=== PATIENT | female | born 1945 | race Caucasian/White ===

== ENCOUNTER → 2017-08-19 12:40 | Outpatient (CLI) | payer MEDICARE, SELFPAY ==
[2016-12-29 14:57] VITALS: BMI 44.9
--- NOTE | 2017-08-20 08:35 | PFTCOMP ---
COMPLETE PULMONARY FUNCTION TEST INTERPRETATION Brief HPI: Patient is a 71 year old female, currently under the care of myself, who presents to [facility] for complete pulmonary function tests secondary to diagnosis of dyspnea. Respiratory therapist reports good effort and reproducible results. Interpretation: Forced expiration spirometry shows no large airways obstructive ventilatory defect with an FEV1 of 79 % predicted. There is some bronchodilator response, but this does not meet clinical significance by strict ATS criteria. Spirograms are of good quality and plateau slowly, indicating slowly emptying areas of the lungs. The respiratory flow volume loop shows decreased expiratory flow rates at high lung volumes consistent with small airways obstruction. Lung volumes by body plethysmography show a normal total lung capacity at 4.77 L, 99 % predicted. All other lung volumes are within normal limits. Diffusion capacity by carbon monoxide is decreased at 55 % predicted. The airway resistance is normal. Compared to previous pulmonary function tests from 01/20/2017, there has been a significant change in DLCO, improved by 17%. Impression: Isolated defect in diffusion capacity with significant improvement compared to previous study 8 months prior.
--- NOTE | 2017-08-20 08:38 | PFTCOMP_ITS ---
COMPLETE PULMONARY FUNCTION TEST INTERPRETATION Brief HPI: Patient is a 71 year old female, currently under the care of myself, who presents to [facility] for complete pulmonary function tests secondary to diagnosis of dyspnea. Respiratory therapist reports good effort and reproducible results. Interpretation: Forced expiration spirometry shows no large airways obstructive ventilatory defect with an FEV1 of 79 % predicted. There is some bronchodilator response, but this does not meet clinical significance by strict ATS criteria. Spirograms are of good quality and plateau slowly, indicating slowly emptying areas of the lungs. The respiratory flow volume loop shows decreased expiratory flow rates at high lung volumes consistent with small airways obstruction. Lung volumes by body plethysmography show a normal total lung capacity at 4.77 L , 99 % predicted. All other lung volumes are within normal limits. Diffusion capacity by carbon monoxide is decreased at 55 % predicted. The airway resistance is normal. Compared to previous pulmonary function tests from 01/20/2017, there has been a significant change in DLCO, improved by 17%. Impression: Isolated defect in diffusion capacity with significant improvement compared to previous study 8 months prior.
== END ==
PROVIDERS: Family Provider Family Medicine; PCP Family Medicine; Visit Provider Internal Medicine Critical Care Medicine
DX: R06.00 Dyspnea, unspecified (principal)
CPT/HCPCS: 94060; 94726; 94729

== ENCOUNTER → 2017-08-21 08:46 | Outpatient (CLI) | payer MEDICARE, SELFPAY ==
[2016-12-29 14:57] VITALS: BMI 44.9
[2017-08-21 09:12] VITALS: PULSE 107; PULSE 108; PULSE 110; PULSE 63; PULSE 67; PULSE 95; PULSE 98; O2SAT 94; O2SAT 95; O2SAT 96; O2SAT 97; O2SAT 99
--- NOTE | 2017-08-21 14:21 | WT_ITS ---
PSN 6 Minute Walk Test - 6 Minute Walk Test 6 Minute Walk Test: 6 Minute Walk Test PSN:6-Minute Walk Test Start: 08/21/17 09: 12 Freq: Status: Active Protocol: [id number].6MINW Document 08/21/17 09:12 HG (Rec: 08/21/17 09:13 HG [id number]) 6 Minute Walk Test Date Performed 08/21/17 Time Performed 09:00 Height 5 ft 5 in Weight: 117.934 kg Weight in Pounds 260.[address]: Jason Comer Assistive device used: None Pre-test Oxygen Delivery Method Room Air Pulse Ox (%) 97 Pulse Rate (60-100 beats/min) 63 Dyspnea Mary Ellen Scale (0-10) 1 Exertion Mary Ellen Scale (6-20) 6 1st minute Oxygen Delivery Method Room Air Pulse Ox (%) 96 Pulse Rate (60-100 beats/min) 67 2nd minute Oxygen Delivery Method Room Air Pulse Ox (%) 95 Pulse Rate (60-100 beats/min) 98 3rd minute Oxygen Delivery Method Room Air Pulse Ox (%) 94 Pulse Rate (60-100 beats/min) 108 H 4th minute Oxygen Delivery Method Room Air Pulse Ox (%) 95 Pulse Rate (60-100 beats/min) 107 H 5th minute Oxygen Delivery Method Room Air Pulse Ox (%) 94 Pulse Rate (60-100 beats/min) 110 H 6th minute Oxygen Delivery Method Room Air Pulse Ox (%) 95 Pulse Rate (60-100 beats/min) 110 H Post-test Oxygen Delivery Method Room Air Pulse Ox (%) 99 Pulse Rate (60-100 beats/min) 95 Dyspnea Mary Ellen Scale (0-10) 1 Exertion Mary Ellen Scale (6-20) 6 Full Laps Walked 20 Partial Lap, Number of Tiles Walked 0 Total Distance Walked (ft) 1180 - Interpretation Interpretation: The patient was able to ambulate 1180 feet over the course of 6 minutes on room air with no assistive devices or breaks. The patient experienced no significant desaturation, but did have some tachycardia. These findings are consistent with deconditioning. - Recommendations Recommendations: No supplemental oxygen is indicated at this time.
== END ==
PROVIDERS: Family Provider Family Medicine; PCP Family Medicine; Visit Provider Internal Medicine Critical Care Medicine
DX: R00.0 Tachycardia, unspecified (principal)
CPT/HCPCS: 94618

== ENCOUNTER → 2017-10-09 09:11 | Outpatient (CLI) | payer MEDICARE, SELFPAY ==
[2016-12-29 14:57] VITALS: BMI 44.9
[2017-10-09 11:05] LABS: AST(SGOT) 21 U/L (15-37); Alanine Aminotransfer ALT/SGPT 27 U/L (13-56); Albumin, Serum 3.2 g/dL (3.2-5.0); Alkaline Phosphatase 100 U/L (45-117); Bilirubin, Direct 0.12 mg/dL (0.00-0.30); Cholesterol 135 mg/dL (200); High Density Lipoprotein 49 mg/dL; Protein, Total 7.2 g/dL (6.4-8.2); Triglycerides 78 mg/dL; Very Low Density Lipoprotein 16 mg/dL (5-40)
== END ==
PROVIDERS: Family Provider Family Medicine; PCP Family Medicine; Visit Provider Internal Medicine Cardiovascular Disease
DX: E78.5 Hyperlipidemia, unspecified (principal); Z79.899 Other long term (current) drug therapy
CPT/HCPCS: 36415; 80061; 80076

== ENCOUNTER → 2018-03-16 12:41 | Outpatient (CLI) | payer MEDICARE, SELFPAY ==
[2016-12-29 14:57] VITALS: BMI 44.9
--- NOTE | 2018-03-16 12:42 | CDU_ITS ---
Reason For Study: Carotid bruit Rt. Velocities/BP Lt. Velocities/BP Prox CCA 119/25.9 cm/sec. Prox CCA 108/26.7 cm/sec. Mid CCA 98.2/18.1 cm/sec. Mid CCA 85.6/26.7 cm/sec. Dist CCA 81.7/14.9 cm/sec. Dist CCA 97.4/26.7 cm/sec. Prox ICA 101/28.5 cm/sec. Prox ICA 101/27.5 cm/sec. Mid ICA 106/33.4 cm/sec. Mid ICA 110/44.8 cm/sec. Dist ICA 86.4/28.5 cm/sec. Dist ICA 117/40.9 cm/sec. Rt. ICA/CCA = 1.08. Lt. ICA/CCA = 1.20. Prox ECA 95.4/11 cm/sec. Prox ECA 80.9/11 cm/sec. Rt. Vert. 43.2/13 cm/sec. Lt. Vert. 45.6/9.82 cm/sec. Right Extracranial There is intimal thickening but no significant atherosclerotic plaque noted in the right common carotid artery. There is heterogeneous, smooth atherosclerotic plaque noted in the right internal carotid artery. There is no significant atherosclerotic plaque noted in the right external carotid artery. Antegrade flow is noted in the right vertebral artery. Left Extracranial There is intimal thickening but no significant atherosclerotic plaque noted in the left common carotid artery. There is heterogeneous, smooth atherosclerotic plaque noted in the left internal carotid artery. There is no significant atherosclerotic plaque noted in the left external carotid artery. Antegrade flow is noted in the left vertebral artery. Procedure Carotid Duplex [id number]. Exam performed in department. Interpretation Summary Mild (<50%) stenosis right extracranial internal carotid. Mild (<50%) stenosis left extracranial internal carotid. Flow within the vertebral arteries is antegrade bilaterally. Ordering Physician: Pam Hernandez Referring Physician: Benjamin Deal MD Performed By: Adithya Sorensen RVT and Student
== END ==
PROVIDERS: Family Provider Family Medicine; PCP Family Medicine; Referring Provider Physician Assistant Medical; Visit Provider Physician Assistant Medical
DX: R09.89 Other specified symptoms and signs involving the circulatory and respiratory systems (principal)
CPT/HCPCS: 93880

== ENCOUNTER → 2018-04-14 10:09 | Outpatient (CLI) | payer MEDICARE, SELFPAY ==
[2016-12-29 14:57] VITALS: BMI 44.9
[2018-04-14 12:50] LABS: AST(SGOT) 23 U/L (15-37); Alanine Aminotransfer ALT/SGPT 33 U/L (13-56); Albumin, Serum 3.1 g/dL (3.2-5.0); Alkaline Phosphatase 95 U/L (45-117); Anion Gap 8 (5-15); BUN 16 mg/dL (7-18); BUN/Creat Ratio 16.9 RATIO (10-20); Calcium,Total 8.7 mg/dL (8.5-10.1); Chloride 105 mmol/L (98-107); Cholesterol 143 mg/dL (200); Creatinine, Serum 0.95 mg/dL (0.55-1.02); EST Glomerular Filtration Rate 62 mL/min (>60); Est Glom Filt Rate - Afr Amer 75 mL/min (>60); Globulin 4.1 g/dL (2.2-4.2); Glucose 120 mg/dL (74-106); High Density Lipoprotein 44 mg/dL; Potassium 3.9 mmol/L (3.5-5.1); Protein, Total 7.2 g/dL (6.4-8.2); Sodium Level 140 mmol/L (136-145); Triglycerides 122 mg/dL; Very Low Density Lipoprotein 24 mg/dL (5-40)
== END ==
PROVIDERS: Family Provider Family Medicine; PCP Family Medicine; Referring Provider Internal Medicine Cardiovascular Disease; Visit Provider Internal Medicine Cardiovascular Disease
DX: I10 Essential (primary) hypertension (principal); E78.5 Hyperlipidemia, unspecified
CPT/HCPCS: 36415; 80048; 80061; 80076

== ENCOUNTER → 2018-10-11 10:48 | Outpatient (CLI) | payer MEDICARE, SELFPAY ==
[2016-12-29 14:57] VITALS: BMI 44.9
[2018-05-11 09:58] VITALS: BMI 44.9
--- NOTE | 2018-10-11 10:52 | RAD_ITS ---
STUDY: X-RAY - LUMBAR SPINE REASON FOR EXAM: Female, 72 years old. Back pain TECHNIQUE: 5 view(s) of the lumbar spine were obtained. COMPARISON: None FINDINGS: There is no evidence of fracture or dislocation in the lumbar spine. The vertebral body heights are well-maintained. There are moderate degenerative changes noted. RAD/L/S Spine Min 4 Views IMPRESSION: No fracture or dislocation in the lumbar spine. Moderate degenerative change. Electronically Signed: Stan Simon, at 18:47 EDT Tel , Service support ,
== END ==
PROVIDERS: Family Provider Family Medicine; PCP Family Medicine; Referring Provider Family Medicine; Visit Provider Family Medicine
DX: M54.5 Low back pain (principal)
CPT/HCPCS: 72110

== ENCOUNTER → 2018-11-17 | Outpatient (CLI) | payer MEDICARE, SELFPAY ==
[2016-12-29 14:57] VITALS: BMI 44.9
[2018-05-11 09:58] VITALS: BMI 44.9
[2018-11-17 12:52] LABS: ALB/GLOB Ratio 0.8 RATIO (0.9-2.4); AST(SGOT) 24 U/L (15-37); Alanine Aminotransfer ALT/SGPT 27 U/L (13-56); Albumin, Serum 3.1 g/dL (3.2-5.0); Alkaline Phosphatase 106 U/L (45-117); Anion Gap 7 (5-15); BUN 12 mg/dL (7-18); BUN/Creat Ratio 12.7 RATIO (10-20); Calcium,Total 8.7 mg/dL (8.5-10.1); Chloride 106 mmol/L (98-107); Cholesterol 141 mg/dL (200); Creatinine, Serum 0.95 mg/dL (0.55-1.02); EST Glomerular Filtration Rate 62 mL/min (>60); Est Glom Filt Rate - Afr Amer 75 mL/min (>60); Globulin 4.1 g/dL (2.2-4.2); Glucose 116 mg/dL (74-106); High Density Lipoprotein 47 mg/dL; Potassium 3.9 mmol/L (3.5-5.1); Protein, Total 7.2 g/dL (6.4-8.2); Sodium Level 140 mmol/L (136-145); Triglycerides 86 mg/dL; Very Low Density Lipoprotein 17 mg/dL (5-40)
== END | disposition home or self-care (01) ==
LOC: MTLAB 10:02
PROVIDERS: Family Provider Family Medicine; PCP Family Medicine; Referring Provider Family Medicine; Visit Provider Family Medicine
DX: E78.5 Hyperlipidemia, unspecified (principal)
CPT/HCPCS: 36415; 80053; 80061

== ENCOUNTER → 2018-11-29 14:38 | Outpatient (CLI) | payer MEDICARE, SELFPAY ==
[2016-12-29 14:57] VITALS: BMI 44.9
[2018-11-29 13:59] VITALS: BMI 45.2
[2018-11-29 15:27] LABS: Hematocrit 40.5 % (37-47); Mean Corp Hgb Conc 32.1 g/gl (32-36); Mean Corpuscular Volume 90.4 fL (81-99); Mean Platelet Vol. 9.6 fl (6.2-12.0); Platelet Count 224 K/mm3 (150-450); RBC Distribution Width CV 12.2 % (11.6-14.6); RBC Distribution Width SD 39.5 fl (35.1-43.9); Red Blood Count 4.48 M/mm3 (4.2-5.4); White Blood Count 8.9 K/mm3 (4.4-11.0)
[2018-11-29 15:49] LABS: Scan Indicated on CBC? Y/N NO
[2018-11-29 16:03] LABS: T4 Total, Thyroxin 10.6 ug/dL (4.8-13.9); Thyroid Stim Hormone (TSH) 2.23 uIU/mL (0.358-3.74)
== END ==
PROVIDERS: Family Provider Family Medicine; PCP Family Medicine; Referring Provider Internal Medicine Cardiovascular Disease; Visit Provider Internal Medicine Cardiovascular Disease
DX: R53.83 Other fatigue (principal)
CPT/HCPCS: 36415; 84436; 84443; 85027

== ENCOUNTER → 2018-12-15 12:39 | Outpatient (CLI) | payer MEDICARE, SELFPAY ==
[2016-12-29 14:57] VITALS: BMI 44.9
[2018-11-29 13:59] VITALS: BMI 45.2
--- NOTE | 2018-12-15 12:43 | ECHOCS_ITS ---
Reason For Study: Dyspnea/SOB Procedure This was a 2D Doppler, Color Flow transthoracic echocardiogram. The study was technically difficult. Contrast injection was performed. Exam performed in department. Left Ventricle Normal size and thickness. The estimated ejection fraction is 65 %. Stage 1 diastolic dysfunction. No regional wall motion abnormalities noted. Right Ventricle Mildly dilated right ventricle. Normal systolic function. Atria Normal left atrium. Normal right atrium. Normal atrial septum. Mitral Valve The mitral valve is structurally normal. No prolapse or stenosis seen. Tricuspid Valve Normal tricuspid valve. Trivial tricuspid valve insufficiency. Right ventricular systolic pressure estimated to be 26 mmHg. Aortic Valve Trisinus/trileaflet aortic valve. Mild focal aortic valve thickening. Pulmonic Valve Normal pulmonic valve. Great Vessels Normal aortic root. Normal arch. Normal inferior vena cava. Inferior vena cava collapse with sniff. Pericardium/Pleural No pericardial effusion. Medication Diluted definity 3ml given slow IV push to enhance endocardial definition. MMode/2D Measurements & Calculations LVIDd: 4.8 cm IVSd: 1.0 cm Ao root diam: 2.9 cm LVIDs: 3.2 cm LVPWd: 0.97 cm RVDd: 3.9 cm FS: 32.9 % LAV(MOD-bp): 40.4 ml LA A4 area: 16.6 cm2 LA dimension(2D): 2.7 cm LAV(MOD-bp) Indexed: 18.3 ml/m2 LAV(MOD-sp2): 33.3 ml LAV(MOD-sp4): 44.5 ml RA A4 area: 15.1 cm2 Doppler Measurements & Calculations MV E max eh: 72.8 cm/sec Lat Peak E' Eh: 9.5 cm/sec Med Peak E' Eh: 9.2 cm/sec MV A max eh: 88.4 cm/sec E/E' lat: 7.7 E/E' med: 7.9 MV E/A: 0.82 Ao V2 max: 139.1 cm/sec LV V1 max: 120.1 cm/sec TR max eh: 186.5 cm/sec Ao max P.7 mmHg LV V1 max P.8 mmHg TR max P.7 mmHg Ao V2 mean: 97.3 cm/sec Ao mean P.2 mmHg Ao V2 VTI: 29.1 cm Interpretation Summary The estimated ejection fraction is 65 %. Stage 1 diastolic dysfunction. Mildly dilated right ventricle. Trivial tricuspid valve insufficiency. Right ventricular systolic pressure estimated to be 26 mmHg. Compared to echo report dated 12/17/2016, no appreciable changes noted. The study was technically difficult. Contrast injection was performed. Ordering Physician: Douglas Hurst Referring Physician: Benjamin Deal Performed By: Jaquelin Harrington RDCS, RVT
== END ==
PROVIDERS: Family Provider Family Medicine; PCP Family Medicine; Referring Provider Internal Medicine Cardiovascular Disease; Visit Provider Internal Medicine Cardiovascular Disease
DX: R00.2 Palpitations (principal)
CPT/HCPCS: 93306; Q9957; A4216; C8929

== ENCOUNTER → 2018-12-22 09:20 | Outpatient (CLI) | payer MEDICARE, SELFPAY ==
[2016-12-29 14:57] VITALS: BMI 44.9
[2018-11-29 13:59] VITALS: BMI 45.2
--- NOTE | 2018-12-22 09:22 | STEWCON_ITS ---
Reason For Study: SOB Stress Results Protocol: Modified Jason Protocol Maximum Predicted HR: 148 bpm Target HR: 126 bpm % Maximum Predicted HR: 94 % DurationHeart Rate Stage (mm:ss) (bpm) BP Comment Baseline 68 142/70No Chest Pain; Diluted Definity 6 ML Given Modified Jason Protocol Stage 0 3:00 112 150/72No Chest Pain Modified Jason Protocol Stage 1/2 3:00 127 168/68No Chest Pain; Mild to Moderate Dyspnea Modified Jason Protocol Stage 1 1:30 139 / No Chest Pain; Moderate Dyspnea; Fatigue Recovery 79 132/80No Chest Pain Stress Duration: 7:30 mm:ss Maximum Stress HR: 139 bpm METS: 4 Baseline Echocardiogram Findings The estimated ejection fraction is 65 %. Stress Echo Wall motion Data Resting WM Intermediate WM Stress WM Resting Wall Motion Wall Motion Stress No regional wall motion No regional wall motion abnormalities noted. abnormalities noted. EKG Data The baseline ECG displays normal sinus rhythm. The maximum heart rate attained was 142 beats per minute. This was 95% of maximum predicted heart rate. During dobutamine infusion, there were no ST or T wave changes noted to suggest ischemia. No clinical angina was noted. Interpretation Summary The estimated ejection fraction is 65 %. Normal, adequate, modified Jason treadmill echocardiogram. Negative for ischemia by EKG and echocardiographic criteria. No anginal symptoms noted. Rare PACs and PVCs noted. Appropriate blood pressure response to exercise. Below average exercise capacity for age. Test terminated due to fatigue. Decreased sensitivity due to poor echo windows requiring Definity agent. Final LVEF of 75%. Test terminated due to fatigue. No complications. The study was technically difficult. Contrast injection was performed. Ordering Physician: Douglas Hurst Referring Physician: Benjamin Deal Performed By: Jaquelin Harrington, SUDHEER, RVT
== END ==
PROVIDERS: Family Provider Family Medicine; PCP Family Medicine; Referring Provider Internal Medicine Cardiovascular Disease; Visit Provider Internal Medicine Cardiovascular Disease
DX: I25.10 Atherosclerotic heart disease of native coronary artery without angina pectoris (principal); G47.33 Obstructive sleep apnea (adult) (pediatric); Z95.5 Presence of coronary angioplasty implant and graft
CPT/HCPCS: 93017; 93350; Q9957; A4216; C8928

== ENCOUNTER → 2019-06-03 11:53 | Outpatient (CLI) | payer MEDICARE, SELFPAY ==
[2016-12-29 14:57] VITALS: BMI 44.9
[2018-11-29 13:59] VITALS: BMI 45.2
[2019-06-03 14:12] LABS: Anion Gap 4 (5-15); BUN 18 mg/dL (7-18); BUN/Creat Ratio 16.4 RATIO (10-20); Calcium,Total 9.3 mg/dL (8.5-10.1); Chloride 107 mmol/L (98-107); EST Glomerular Filtration Rate 52 mL/min (>60); Est Glom Filt Rate - Afr Amer 63 mL/min (>60); Glucose 135 mg/dL (74-106); Potassium 3.9 mmol/L (3.5-5.1); Sodium Level 141 mmol/L (136-145)
== END ==
PROVIDERS: Family Provider Family Medicine; PCP Family Medicine; Referring Provider Family Medicine; Visit Provider Family Medicine
DX: I10 Essential (primary) hypertension (principal)
CPT/HCPCS: 36415; 80048

== ENCOUNTER → 2019-07-12 09:21 | Outpatient (CLI) | payer MEDICARE, SELFPAY ==
[2016-12-29 14:57] VITALS: BMI 44.9
[2019-06-23 11:12] VITALS: BMI 46.7
[2019-07-12 12:48] LABS: AST(SGOT) 25 U/L (15-37); Alanine Aminotransfer ALT/SGPT 30 U/L (13-56); Albumin, Serum 3.1 g/dL (3.2-5.0); Alkaline Phosphatase 96 U/L (45-117); Bilirubin, Direct 0.13 mg/dL (0.00-0.30); Cholesterol 140 mg/dL (200); Globulin 4.1 g/dL (2.2-4.2); High Density Lipoprotein 49 mg/dL; Protein, Total 7.2 g/dL (6.4-8.2); Triglycerides 81 mg/dL; Very Low Density Lipoprotein 16 mg/dL (5-40)
== END ==
PROVIDERS: PCP Family Medicine; Referring Provider Internal Medicine Cardiovascular Disease; Visit Provider Internal Medicine Cardiovascular Disease
DX: I25.10 Atherosclerotic heart disease of native coronary artery without angina pectoris (principal); E78.00 Pure hypercholesterolemia, unspecified
CPT/HCPCS: 36415; 80061; 80076

== ENCOUNTER → 2020-02-10 09:41 | Outpatient (CLI) | payer MEDICARE, SELFPAY ==
[2016-12-29 14:57] VITALS: BMI 44.9
[2020-02-02 09:56] VITALS: BMI 46.5
--- NOTE | 2020-02-10 09:41 | CDU_ITS ---
Reason For Study: CAROTID STENOSIS Rt. Velocities/BP Lt. Velocities/BP Prox CCA 138/26 cm/sec. Prox CCA 152/33 cm/sec. Mid CCA 108/17 cm/sec. Mid CCA 136/23 cm/sec. Dist CCA 85/21 cm/sec. Dist CCA 110/23 cm/sec. Prox ICA 130/37 cm/sec. Prox ICA 138/37 cm/sec. Mid ICA 119/35 cm/sec. Mid ICA 116/30 cm/sec. Dist ICA 99/26 cm/sec. Dist ICA 125/44 cm/sec. Rt. ICA/CCA = 1.2. Lt. ICA/CCA = 1.0. Prox ECA 130/7 cm/sec. Prox ECA 123/23 cm/sec. Rt. Vert. 72/17 cm/sec. Lt. Vert. 61/12 cm/sec. Right Extracranial There is homogeneous, smooth atherosclerotic plaque noted in the right common carotid artery. There is heterogeneous, irregular atherosclerotic plaque noted in the right internal carotid artery. There is homogeneous, smooth atherosclerotic plaque noted in the right external carotid artery. Antegrade flow is noted in the right vertebral artery. Left Extracranial There is homogeneous, smooth atherosclerotic plaque noted in the left common carotid artery. There is heterogeneous, irregular atherosclerotic plaque noted in the left internal carotid artery. There is homogeneous, smooth atherosclerotic plaque noted in the left internal carotid artery. There is heterogeneous, irregular atherosclerotic plaque noted in the left external carotid artery. Antegrade flow is noted in the left vertebral artery. Procedure Carotid Duplex [id number]. Exam performed in department. Interpretation Summary Minimal irregular plaque at the proximal right internal carotid artery with 50 to 69% stenosis. <50% stenosis right external carotid Minimal irregular plaque at the proximal left internal carotid artery with 50 to 69% stenosis. <50% stenosis left external carotid Patent and antegrade vertebrals bilaterally Mild progression of occlusive disease of bilateral internal carotid arteries from the previous carotid duplex examination of March 16, 2018 Ordering Physician: Douglas Hurst Referring Physician: Douglas Hurst Performed By: Tala Hernandez, SUDHEER, RVT
== END ==
PROVIDERS: PCP Family Medicine; Referring Provider Internal Medicine Cardiovascular Disease; Visit Provider Internal Medicine Cardiovascular Disease
DX: R09.89 Other specified symptoms and signs involving the circulatory and respiratory systems (principal)
CPT/HCPCS: 93880

== ENCOUNTER → 2020-02-21 11:57 | Outpatient (CLI) | payer MEDICARE, SELFPAY ==
[2016-12-29 14:57] VITALS: BMI 44.9
[2020-02-02 09:56] VITALS: BMI 46.5
[2020-02-21 16:24] LABS: ALB/GLOB Ratio 0.8 RATIO (0.9-2.4); AST(SGOT) 25 U/L (15-37); Alanine Aminotransfer ALT/SGPT 28 U/L (13-56); Albumin, Serum 3.3 g/dL (3.2-5.0); Alkaline Phosphatase 97 U/L (45-117); Anion Gap 5 (5-15); BUN 13 mg/dL (7-18); BUN/Creat Ratio 13.8 RATIO (10-20); Chloride 106 mmol/L (98-107); Creatinine, Serum 0.94 mg/dL (0.55-1.02); EST Glomerular Filtration Rate 62 mL/min (>60); Est Glom Filt Rate - Afr Amer 75 mL/min (>60); Glucose 109 mg/dL (74-106); Potassium 3.9 mmol/L (3.5-5.1); Protein, Total 7.3 g/dL (6.4-8.2); Sodium Level 139 mmol/L (136-145)
[2020-02-24 10:29] LABS: Cholesterol 136 mg/dL (200); High Density Lipoprotein 49 mg/dL; Thyroid Stim Hormone (TSH) 2.52 uIU/mL (0.358-3.74); Triglycerides 89 mg/dL; Very Low Density Lipoprotein 18 mg/dL (5-40)
== END ==
PROVIDERS: PCP Family Medicine; Referring Provider Family Medicine; Visit Provider Family Medicine
DX: I25.10 Atherosclerotic heart disease of native coronary artery without angina pectoris (principal); E78.5 Hyperlipidemia, unspecified
CPT/HCPCS: 36415; 80053; 80061; 84443

== ENCOUNTER → 2020-02-24 09:19 | Outpatient (CLI) | payer MEDICARE, SELFPAY ==
[2016-12-29 14:57] VITALS: BMI 44.9
[2020-02-02 09:56] VITALS: BMI 46.5
== END ==
PROVIDERS: PCP Family Medicine; Referring Provider Family Medicine; Visit Provider Family Medicine
DX: Z00.00 Encounter for general adult medical examination without abnormal findings (principal)

== ENCOUNTER → 2021-02-27 10:04 | Outpatient (CLI) | payer MEDICARE, SELFPAY ==
[2016-12-29 14:57] VITALS: BMI 44.9
[2021-02-27 12:29] LABS: ALB/GLOB Ratio 0.7 RATIO (0.9-2.4); AST(SGOT) 20 U/L (15-37); Alanine Aminotransfer ALT/SGPT 29 U/L (13-56); Alkaline Phosphatase 90 U/L (45-117); Anion Gap 6 (5-15); BUN 17 mg/dL (7-18); Bilirubin, Direct 0.11 mg/dL (0.00-0.30); Calcium,Total 8.9 mg/dL (8.5-10.1); Chloride 107 mmol/L (98-107); Cholesterol 127 mg/dL (200); Creatinine, Serum 0.94 mg/dL (0.55-1.02); EST Glomerular Filtration Rate 61 mL/min (>60); Est Glom Filt Rate - Afr Amer 74 mL/min (>60); Globulin 4.4 g/dL (2.2-4.2); Glucose 125 mg/dL (74-106); High Density Lipoprotein 46 mg/dL; Potassium 3.7 mmol/L (3.5-5.1); Protein, Total 7.4 g/dL (6.4-8.2); Sodium Level 142 mmol/L (136-145); Triglycerides 92 mg/dL; Very Low Density Lipoprotein 18 mg/dL (5-40)
== END ==
PROVIDERS: PCP Family Medicine; Referring Provider Family Medicine; Visit Provider Family Medicine
DX: I10 Essential (primary) hypertension (principal); E78.00 Pure hypercholesterolemia, unspecified; I25.10 Atherosclerotic heart disease of native coronary artery without angina pectoris; Z95.5 Presence of coronary angioplasty implant and graft
CPT/HCPCS: 36415; 80053; 80061; 82248

== ENCOUNTER 2021-08-23 12:47 | Outpatient (CLI) | payer MEDICARE, SELFPAY ==
[2016-12-29 14:57] VITALS: BMI 44.9
--- NOTE | 2021-08-23 12:50 | CDU_ITS ---
Reason For Study: bruits Rt. Velocities/BP Lt. Velocities/BP Prox CCA 135.2/7.9 cm/sec. Prox CCA 175.3/30.5 cm/sec. Mid CCA 122.2/19.9 cm/sec. Mid CCA 133.6/26.1 cm/sec. Dist CCA 82.0/16.3 cm/sec. Dist CCA 98.5/21.7 cm/sec. Prox ICA 94.8/23.6 cm/sec. Prox ICA 97.2/25.9 cm/sec. Mid ICA 133.2/38.2 cm/sec. Mid ICA 122.2/32.7 cm/sec. Dist ICA 87.5/27.2 cm/sec. Dist ICA 129.4/47.3 cm/sec. Rt. ICA/CCA = 133.2/122.2=1.1. Lt. ICA/CCA = 129.4/133.6=1.0. Prox ECA 82.2/10.9 cm/sec. Prox ECA 107.3/10.8 cm/sec. Rt. Vert. 71.1/18.1 cm/sec. Lt. Vert. 60.7/12.3 cm/sec. Right Extracranial There is homogeneous, smooth atherosclerotic plaque noted in the right common carotid artery. There is homogeneous, smooth atherosclerotic plaque noted in the right internal carotid artery. There is intimal thickening but no significant atherosclerotic plaque noted in the right external carotid artery. Antegrade flow is noted in the right vertebral artery. Left Extracranial There is homogeneous, smooth atherosclerotic plaque noted in the left common carotid artery. There is heterogeneous, irregular atherosclerotic plaque noted in the left internal carotid artery. The left internal carotid artery is very tortuous. There is heterogeneous, irregular atherosclerotic plaque noted in the left external carotid artery. Antegrade flow is noted in the left vertebral artery. Procedure Carotid Duplex [id number]. This is a Carotid Duplex examination using B-mode, color flow and specral Doppler. This is a venous duplex using B-mode, color flow and spectral Doppler. Exam performed in department. VL/Carotid Duplex Ultrasound Interpretation Summary Smooth plague proximal right internal carotid with 50-69% stenosis based upon v elocity but the vessel is difficult to image at that point and likely overestimates the degree of stenosis. <50% stenosis right external carotid Tortuous left internal carotid with <50% stenosis <50% stenosis left external carotid Patent, antegrade vertebrals bilaterally Ordering Physician: Sol Guzman Referring Physician: Benjamin Deal Performed By: Enedina Guaman, SUDHEER, RVT
== END 2021-08-23 23:59 | disposition home or self-care (01) ==
PROVIDERS: PCP Family Medicine; Referring Provider Nurse Practitioner Gerontology; Visit Provider Nurse Practitioner Gerontology
DX: R09.89 Other specified symptoms and signs involving the circulatory and respiratory systems (principal)
CPT/HCPCS: 93880

== ENCOUNTER → 2021-12-19 | Outpatient (CLI) | payer MEDICARE, SELFPAY ==
[2016-12-29 14:57] VITALS: BMI 44.9
[2021-12-19 11:57] LABS: Hematocrit 40.3 % (37-47); Hemoglobin 12.8 g/dL (12.0-15.0); Mean Corp Hgb Conc 31.8 g/dL (32-36); Mean Corpuscular Hgb 29.2 pg (27.0-32.0); Mean Corpuscular Volume 91.8 fL (81-99); Platelet Count 233 K/mm3 (150-450); RBC Distribution Width CV 11.9 % (11.6-14.6); RBC Distribution Width SD 40.3 fl (35.1-43.9); Red Blood Count 4.39 M/mm3 (4.2-5.4); White Blood Count 7.6 K/mm3 (4.4-11.0)
[2021-12-19 12:24] LABS: ALB/GLOB Ratio 0.8 RATIO (0.9-2.4); AST(SGOT) 20 U/L (15-37); Alanine Aminotransfer ALT/SGPT 23 U/L (13-56); Albumin, Serum 3.1 g/dL (3.2-5.0); Alkaline Phosphatase 95 U/L (45-117); Anion Gap 5 (5-15); BUN 14 mg/dL (7-18); BUN/Creat Ratio 14.6 RATIO (10-20); Chloride 110 mmol/L (98-107); Cholesterol 138 mg/dL (200); Creatinine, Serum 0.96 mg/dL (0.55-1.02); EST Glomerular Filtration Rate 60 mL/min (>60); Est Glom Filt Rate - Afr Amer 73 mL/min (>60); Globulin 3.9 g/dL (2.2-4.2); Glucose 121 mg/dL (74-106); High Density Lipoprotein 47 mg/dL; Sodium Level 142 mmol/L (136-145); Triglycerides 93 mg/dL; Very Low Density Lipoprotein 19 mg/dL (5-40)
== END | disposition home or self-care (01) ==
LOC: MTLAB 10:00
PROVIDERS: PCP Family Medicine; Referring Provider Family Medicine; Visit Provider Family Medicine
DX: I25.10 Atherosclerotic heart disease of native coronary artery without angina pectoris (principal); I10 Essential (primary) hypertension; E78.5 Hyperlipidemia, unspecified
CPT/HCPCS: 80053; 80061; 85027

== ENCOUNTER → 2022-12-17 | Outpatient (CLI) | payer MEDICARE, SELFPAY ==
[2016-12-29 14:57] VITALS: BMI 44.9
[2022-12-17 13:33] LABS: ALB/GLOB Ratio 0.7 RATIO (0.9-2.4); AST(SGOT) 22 U/L (15-37); Alanine Aminotransfer ALT/SGPT 25 U/L (13-56); Alkaline Phosphatase 99 U/L (45-117); Anion Gap 5 (5-15); BUN 19 mg/dL (7-18); BUN/Creat Ratio 19.8 RATIO (10-20); Calcium,Total 8.8 mg/dL (8.5-10.1); Chloride 107 mmol/L (98-107); Cholesterol 137 mg/dL (200); Creatinine, Serum 0.96 mg/dL (0.55-1.02); EST Glomerular Filtration Rate 60 mL/min (>60); Est Glom Filt Rate - Afr Amer 73 mL/min (>60); Globulin 4.1 g/dL (2.2-4.2); Glucose 121 mg/dL (74-106); High Density Lipoprotein 47 mg/dL; Potassium 3.7 mmol/L (3.5-5.1); Protein, Total 7.1 g/dL (6.4-8.2); Sodium Level 138 mmol/L (136-145); Thyroid Stim Hormone (TSH) 2.67 uIU/mL (0.358-3.74); Triglycerides 75 mg/dL; Very Low Density Lipoprotein 15 mg/dL (5-40)
== END | disposition home or self-care (01) ==
PROVIDERS: PCP Family Medicine; Referring Provider Family Medicine; Visit Provider Family Medicine
DX: R73.01 Impaired fasting glucose (principal)
CPT/HCPCS: 36415; 80053; 80061; 84443

== ENCOUNTER → 2023-03-06 | Outpatient (CLI) | payer MEDICARE, SELFPAY ==
[2016-12-29 14:57] VITALS: BMI 44.9
--- NOTE | 2023-03-06 12:43 | ECHOCS_ITS ---
Reason For Study: PALPITATIONS Procedure This was a 2D Doppler, Color Flow transthoracic echocardiogram. The study was technically difficult. Contrast injection was performed. Left Ventricle Normal size and thickness. The left ventricular ejection fraction is 65 %. Stage 1 diastolic dysfunction. Right Ventricle Normal right ventricle. Atria The left and right atria are normal. Mitral Valve Normal mitral valve. Tricuspid Valve Normal tricuspid valve. Aortic Valve Normal aortic valve. Pulmonic Valve The pulmonic valve is not well visualized. Great Vessels Normal sized aortic root. Pericardium/Pleural No pericardial effusion. Medication 22 gauge I.V. with prn adaptor inserted into right arm. Diluted definity 3ml given slow IV push to enhance endocardial definition. MMode/2D Measurements & Calculations Ao root diam: 2.9 cm LAV(MOD-bp): 57.5 ml LVAd ap4: 36.2 cm2 LAV(MOD-bp) Indexed: 25.8 ml/m2 LVLd ap4: 8.8 cm LAV(MOD-sp2): 37.2 ml EDV(MOD-sp4): 126.5 ml LAV(MOD-sp4): 68.4 ml EDV(sp4-el): 126.6 ml LVAs ap4: 16.4 cm2 LVLs ap4: 6.7 cm ESV(MOD-sp4): 34.3 ml ESV(sp4-el): 34.3 ml EF(MOD-sp4): 72.9 % EF(sp4-el): 72.9 % SV(MOD-sp4): 92.2 ml SV(sp4-el): 92.3 ml LA A4 area: 24.2 cm2 LA dimension(2D): 3.2 cm TAPSE: 2.0 cm RA A4 area: 14.9 cm2 Time Measurements MV dec time: 0.28 sec Doppler Measurements & Calculations MV E max eh: 55.7 cm/sec Lat Peak E' Eh: 8.4 cm/sec Med Peak E' Eh: 10.6 cm/sec MV A max eh: 76.6 cm/sec E/E' lat: 6.6 E/E' med: 5.3 MV E/A: 0.73 MV V2 max: 83.2 cm/sec MV dec slope: 208.2 cm/sec2 Ao V2 max: 113.2 cm/sec MV max P.8 mmHg Ao max P.1 mmHg MV V2 mean: 39.3 cm/sec Ao V2 mean: 79.3 cm/sec MV mean P.88 mmHg Ao mean P.9 mmHg MV V2 VTI: 27.0 cm Ao V2 VTI: 27.1 cm AV (velocity ratio): 0.76 LV V1 max: 91.4 cm/sec LV V1 max P.3 mmHg LV V1 mean P.5 mmHg LV V1 mean: 57.0 cm/sec LV V1 VTI: 20.5 cm ECHO/Echo Complete W/ Contrast Interpretation Summary The left ventricular ejection fraction is 65 %. Stage 1 diastolic dysfunction. The study was technically difficult. Ordering Physician: Kathrin Prieto Referring Physician: Kathrin Prieto Performed By: Aranza Silverman RCS
--- NOTE | 2023-03-06 12:43 | CDU_ITS ---
Reason For Study: Carotid Artery Disease Rt. Velocities/BP Lt. Velocities/BP Prox CCA 124/14 cm/sec. Prox CCA 155/30 cm/sec. Mid CCA 67/13 cm/sec. Mid CCA 71/20 cm/sec. Dist CCA 70/14 cm/sec. Dist CCA 88/19 cm/sec. Prox ICA 98/28 cm/sec. Prox ICA 97/22 cm/sec. Mid ICA 95/31 cm/sec. Mid ICA 109/30 cm/sec. Dist ICA 92/35 cm/sec. Dist ICA 100/29 cm/sec. Rt. ICA/CCA = 1.5. Lt. ICA/CCA = 1.5. Prox ECA 99/12 cm/sec. Prox ECA 88/11 cm/sec. Rt. Vert. 47/12 cm/sec. Lt. Vert. 39/10 cm/sec. Right Extracranial There is heterogeneous, irregular atherosclerotic plaque noted in the right common carotid artery. There is heterogeneous, irregular atherosclerotic plaque noted in the right internal carotid artery. There is no significant atherosclerotic plaque noted in the right external carotid artery. Antegrade flow is noted in the right vertebral artery. Left Extracranial There is heterogeneous, irregular atherosclerotic plaque noted in the left common carotid artery. There is heterogeneous, irregular atherosclerotic plaque noted in the left internal carotid artery. There is heterogeneous, irregular atherosclerotic plaque noted in the left external carotid artery. Antegrade flow is noted in the left vertebral artery. Procedure Carotid Duplex [id number]. This is a Carotid Duplex examination using B-mode, color flow and specral Doppler. Exam performed in department. VL/Carotid Duplex Ultrasound Interpretation Summary Mild (<50%) stenosis right extracranial internal carotid. Mild (<50%) stenosis left extracranial internal carotid. Patent and antegrade vertebrals bilaterally. Ordering Physician: Kathrin Prieto Referring Physician: Benjamin Deal Performed By: Jaquelin Harrington, ELSIECS, RVT
== END | disposition home or self-care (01) ==
LOC: CVS 12:40
PROVIDERS: PCP Family Medicine; Referring Provider Internal Medicine Cardiovascular Disease; Visit Provider Internal Medicine Cardiovascular Disease
DX: R00.2 Palpitations (principal); E66.9 Obesity, unspecified; I25.10 Atherosclerotic heart disease of native coronary artery without angina pectoris; I10 Essential (primary) hypertension; R09.89 Other specified symptoms and signs involving the circulatory and respiratory systems
CPT/HCPCS: 93306; 93880; Q9957; A4216; C8929

== ENCOUNTER → 2023-05-13 | Outpatient (CLI) | payer MEDICARE, SELFPAY ==
[2016-12-29 14:57] VITALS: BMI 44.9
[2023-05-13 15:39] LABS: Anion Gap 1 (5-15); BUN 17 mg/dL (7-18); BUN/Creat Ratio 18.1 RATIO (10-20); Chloride 105 mmol/L (98-107); Creatinine, Serum 0.94 mg/dL (0.55-1.02); EST Glomerular Filtration Rate 62 mL/min (>60); Est Glom Filt Rate - Afr Amer 75 mL/min (>60); Glucose 165 mg/dL (74-106); Potassium 3.6 mmol/L (3.5-5.1); Sodium Level 137 mmol/L (136-145)
== END | disposition home or self-care (01) ==
LOC: MFPLAB 14:15
PROVIDERS: PCP Family Medicine; Visit Provider Family Medicine
DX: I16.0 Hypertensive urgency (principal)
CPT/HCPCS: 36415; 80048

== ENCOUNTER 2023-07-13 23:21 | Inpatient (IN) | payer MEDICARE, SELFPAY ==
[2016-12-29 14:57] VITALS: BMI 44.9
[2023-07-13 23:22] VITALS: BP 151/75; PULSE 107; RESP 28; TEMP 36.1; O2SAT 95; O2SAT 96; BMI 45.8
[2023-07-13 23:26] VITALS: BP 151/75; PULSE 104; RESP 28; TEMP 36.1; O2SAT 92
[2023-07-13 23:27] VITALS: O2SAT 90
[2023-07-13 23:50] VITALS: O2SAT 88
[2023-07-14] VITALS (22 sets, daily range): BP systolic 129–179; BP diastolic 66–84; PULSE 71–108; RESP 21–27; TEMP 36.2–36.8; O2SAT 84–97; BMI 44.6
--- NOTE | 2023-07-14 00:05 | ED.RN ---
pt desats to 88% while talking to Dr. Cano, O2 sats increased to 3L NC.
--- NOTE | 2023-07-14 00:15 | RAD_ITS ---
EXAM: XR Chest 2 Views INDICATION: Female, 77 years old. Shortness of breath TECHNIQUE: PA and lateral views COMPARISON: None FINDINGS: DEVICES: None LUNGS: Hyperexpansion of the lungs. Mild patchy airspace opacification at the left lung base which partially obscures the hemidiaphragm. Likely small left pleural effusion. No concerning pulmonary nodule. No pneumothorax. MEDIASTINUM: Cardiac and mediastinal silhouettes are within normal limits. No central pulmonary vascular congestion. . SKELETAL STRUCTURES: Multilevel degenerative change of the spine. UPPER ABDOMEN: Unremarkable RAD/Chest PA and Lateral IMPRESSION: Left lung base atelectasis versus infiltrate Electronically Signed: Julien Payne MD at 2:10 EST ,
[2023-07-14 00:36] LABS: Absolute Lymphocyte Count 1.62 X10^3/uL (0.83-4.51); Absolute Neutrophil Count 8.4 X10^3/uL (2.0-7.7); Basophil# 0.03 X10^3/uL; Basophil% 0.3 % (0-1); Eosinophil# 0.17 X10^3/uL; Eosinophils% 1.6 % (0-5); Hematocrit 42.1 % (37-47); Hemoglobin 13.7 g/dL (12.0-15.0); Lymphocyte # 1.62 X10^3/ul (0.83-4.51); Lymphocyte % 14.9 % (19-41); Mean Corp Hgb Conc 32.5 g/dL (32-36); Mean Corpuscular Volume 89.2 fL (81-99); Mean Platelet Vol. 9.2 fl (6.2-12.0); Monocyte% 6.4 % (0-10); NRBC Flagged by Analyzer 0 % (0-5); Neutrophil # 8.35 X10^3/uL (2.7-7.7); Neutrophil % 76.5 % (47-70); Platelet Count 225 K/mm3 (150-450); RBC Distribution Width CV 11.7 % (11.6-14.6); RBC Distribution Width SD 37.8 fl (35.1-43.9); Red Blood Count 4.72 M/mm3 (4.2-5.4); White Blood Count 10.9 K/mm3 (4.4-11.0)
[2023-07-14 00:59] LABS: BNP,B-Type NATRIURETIC PEPTIDE 66.9 pg/mL (0-100)
[2023-07-14 01:05] LABS: Lactic Acid 0.9 mmol/L (0.4-1.9)
[2023-07-14 01:06] LABS: Anion Gap 5 (5-15); BUN 17 mg/dL (7-18); BUN/Creat Ratio 17.3 RATIO (10-20); Calcium,Total 9.1 mg/dL (8.5-10.1); Chloride 109 mmol/L (98-107); Creatinine, Serum 0.98 mg/dL (0.55-1.02); EST Glomerular Filtration Rate 59 mL/min (>60); Est Glom Filt Rate - Afr Amer 71 mL/min (>60); Glucose 150 mg/dL (74-106); Potassium 3.4 mmol/L (3.5-5.1); Sodium Level 141 mmol/L (136-145); Troponin-I HS 140 pg/mL (3.0-54.0)
[2023-07-14 01:14] LABS: D-Dimer Quantitative (DVT/PE) 4.89 FEU/ug/m (0.27-0.49)
--- NOTE | 2023-07-14 01:24 | CT_ITS ---
EXAM: CT ANGIOGRAPHY CHEST WITHOUT AND WITH INTRAVENOUS CONTRAST CLINICAL INDICATION: SOB, elevatd dimer TECHNIQUE: Helically acquired angiography images were obtained of the chest without and with intravenous contrast. This CT exam was performed using one or more of the following dose reduction techniques: automated exposure control, adjustment of the mA and/or kV according to patient size, and/or use of iterative reconstruction technique. MIP reconstructed images were created and reviewed. CONTRAST: IV 100mL [id number] RADIATION DOSE: Total DLP: 554.13 mGy-cm. COMPARISON: Chest radiographs of this same date. FINDINGS: PULMONARY ARTERIES: Lobulated thrombus is noted within the distal aspect of the right main pulmonary artery, with thrombus subtotally filling the right upper lobe pulmonary artery and extending into its proximal segmental branches. Thrombus subtotally fills the interlobar pulmonary artery on the right, with thrombus extending into both the medial and lateral segmental branches of the right middle lobe pulmonary artery. Right lower lobe pulmonary artery is filled with thrombus, and with branching thrombus extending into its segmental branches. On the left, a small amount of thrombus is seen within the left upper lobe pulmonary artery and with thrombus extending into its anterior segmental branch. A small amount of thrombus extends into the interlobar pulmonary artery on the left, with thrombus subtotally filling the origin of the lingular pulmonary artery. A small amount of thrombus extends into the left lower lobe pulmonary artery, and with branching thrombus extending into its segmental branches and distally into one of the peripheral subsegmental branch. No saddle embolus. AORTA: Unremarkable. Normal in caliber. No evidence of dissection. GREAT VESSELS OF AORTIC ARCH: Unremarkable. Normal in caliber. No evidence of dissection. LUNGS AND PLEURAL SPACES: Consolidation is noted within the left lower lobe posteriorly including a somewhat wedge-shaped focus of infiltrate along the posterolateral aspect of left lower lobe, consistent with atelectasis and possible small pulmonary infarction. There is minimal left pleural effusion. Right lung is clear. HEART: Left ventricular hypertrophy is noted. The right lateral ventricle is slightly dilated as compared to the left indicating minimal right ventricular strain. Heavy coronary artery calcification is present. No significant pericardial effusion. MEDIASTINUM: Unremarkable. Esophagus is unremarkable. No hiatal hernia. No hilar or mediastinal adenopathy. THYROID: Multiple thyroid nodules are present including a 2.3 cm ovoid hypodense nodule within the left thyroid lobe, with this nodule showing an enhancing peripheral focus. No follow-up is necessary in view of patient''s age. BONES/JOINTS: No acute osseous abnormality. Flowing osteophytes about the mid to lower thoracic region. Partial fusion of the T8/9 intervertebral disc space. UPPER ABDOMEN: Liver demonstrates fatty infiltration. Visualized portions of the gallbladder, pancreas, spleen, adrenal glands and left renal upper pole are unremarkable. No pneumoperitoneum is noted. 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 CT/CTA Chest W/WO Contrast IMPRESSION: Extensive bilateral pulmonary thromboembolic disease, with associated findings of minimal right ventricular strain. No saddle embolus. Infiltrate in the left lower lobe consistent with atelectasis and possible small pulmonary infarction. Minimal left pleural effusion. Nonstandard communication protocol initiated and completed. N.B. : The above Results were Read Back by Kai Miner MD to Mary Cano DO, and understanding confirmed on 07/14/2023 03:16:59 (ET). Electronically Signed: Kai Miner MD at 3:26 EST ,
[2023-07-14] MEDS: DiphenhydrAMINE 50 MG/ML Syringe IV (01:28)
[2023-07-14] MEDS: 0.9% Normal Saline (1000mL) 1,000 ML 150 ML IV (01:31)
--- NOTE | 2023-07-14 01:39 | ED.RN ---
staff was assisting pt with application of a purwick and pts head lowered to be pulled up in bed. pts o2 sats decrease to 84% on the 3L o2 via nc.
--- OUTSIDE RECORDS SUMMARY | 2023-07-14 01:39 | XMS RPT_ITS | CCD ---
Author Name Unknown Address [address] [place] [address] Organization [facility] Care Team Providers Care Erp Analyst Name Role Phone Som Delcid Stephanie Unavailable Unavailable Allergies Allergy Classification Reported Allergen(s) Allergy Type Date of Onset Reaction(s) Facility (2 sources) iodine Drug Allergy 07-20-2010 [facility] Work Phone: Medications Completed/Discontinued Medications Medication Drug Class(es) Dates Sig (Normalized) Sig (Original) amLODIPine 5 mg oral tablet (4 sources) Dihydropyridine Calcium Channel Natalee Start: 07-31-2011 End: 04-19-2013 take 1 tablet by mouth twice daily NORVASC 5 MG TABS one tablety by mouth twice a day AMLODIPINE BESYLATE [id number] Darin Herrera MD Problems Active Problems Problem Classification Problem Date Documented Date Episodic/Chronic Cardiac dysrhythmias (2 sources) Atrial fibrillation; Translations: [Paroxysmal atrial fibrillation] Onset: 04-21-2013 Resolved: 11-02-2015 11-02-2015 Chronic Coronary atherosclerosis and other heart disease (2 sources) Atherosclerotic heart disease of [place] coronary artery without angina pectoris; Translations: [Coronary atherosclerosis] Onset: 10-15-2010 11-06-2015 Chronic Disorders of lipid metabolism (1 source) Hyperlipidemia; Translations: [Hyperlipidemia, unspecified] Onset: 10-15-2010 10-15-2010 Chronic Essential hypertension (1 source) Hypertensive disorder; Translations: [Essential (primary) hypertension] Onset: 10-15-2010 10-15-2010 Chronic Unclassified (2 sources) Body mass index (BMI) 45.0-49.9, adult; Translations: [Obstructive sleep apnea of adult] Onset: 04-19-2013 04-19-2013 Chronic Unclassified (1 source) Long-term drug therapy; Translations: [Other prison (current) drug therapy] Onset: 10-15-2010 10-15-2010 Unclassified (1 source) Placement of stent in coronary artery ; Translations: [Presence of coronary angioplasty implant and graft] Onset: 10-15-2010 11-06-2015 Past or Other Problems Problem Classification Problem Date Documented Da te Episodic/Chronic Cardiac dysrhythmias (1 source) Palpitations; Translations: [Palpitations] Onset: 10-15-2010 10-15-2010 Episodic Coma, stupor, brain damage (1 source) Daytime somnolence; Translations: [Somnolence] Onset: 12-18-2016 12-18-2016 Episodic Coronary atherosclerosis and other heart disease (1 source) Coronary angioplasty status; Translations: [Coronary angioplasty status] Onset: 10-15-2010 10-15-2010 Episodic Influenza (1 source) Influenza; Translations: [Influenza due to unidentified influenza virus with other respiratory manifestations] Onset: 07-20-2010 Resolved: 08-31-2010 07-20-2010 Episodic Nonspecific chest pain (2 sources) Chest pain, unspecified; Translations: [Chest pain, unspecified] Onset: 10-15-2010 Resolved: 11-06-2015 10-15-2010 Episodic Other connective tissue disease (2 sources) Pain in right lower limb; Translations: [Pes anserinus tendinitis and bursitis] Onset: 02-04-2016 02-04-2016 Episodic Other lower respiratory disease (1 source) Dyspnea; Translations: [Dyspnea, unspecified] Onset: 01-05-2017 01-05-2017 Episodic Sprains and strains (1 source) Strain of muscle, fascia and tendon of the posterior muscle group at thigh level, right thigh, initial encounter; Translations: [Strain of muscle, fascia and tendon of the posterior muscle group at thigh level, right thigh, initial encounter] Onset: 02-04-2016 02-15-2016 Episodic Unclassified (3 sources) Abnormal result of cardiovascular function study, unspecified; Translations: [Abnormal findings on diagnostic imaging of heart and coronary circulation] Onset: 10-15-2010 Resolved: 11-02-2015 10-15-2010 Episodic Unclassified (1 source) Hypersomnia; Translations: [Hypersomnia, unspecified] Onset: 12-03-2016 12-03-2016 Episodic Urinary tract infections (1 source) Urinary tract infectious disease; Translations: [Urinary tract infection, site not specified] Onset: 09-24-2010 Resolved: 10-24-2010 09-24-2010 Episodic Results Test Name Value Interpretation Reference Range Facil ity Vital Signs Date Time Vital Sign Value Performing Clinician Alexi vilma 02-02-2017 11:38-0400 BMI (Body Mass Index) 43.93 kg/m2 Som DeFingudelia [facility] Work Phone: 02-02-2017 11:38-0400 BP Diastolic 62 mm[Hg] Harumi DeFinis [facility] Work Phone: 02-02-2017 11:38-0400 BP Systolic 120 mm[Hg] Harumi DeFinis [facility] Work Phone: 02-02-2017 11:38-0400 Height 165.1 cm Harumi DeFinis [facility] Work Phone: 02-02-2017 11:38-0400 Pulse (Heart Rate) 62 /min Harumi DeFinis [facility] Work Phone: 02-02-2017 11:38-0400 Respiratory Rate 18 /min Harumi DeFinis [facility] Work Phone: 02-02-2017 11:38-0400 Weight 119.75 kg Harumi DeFinis [facility] Work Phone: 01-05-2017 12:07-0400 Body Temperature 98.2 [degF] Harumi DeFinis [facility] Work Phone: 05-26-2016 13:53-0500 BSA (Body Surface Area) 2.24 m2 Harumi DeFinis [facility] Work Phone: Procedures Date Procedure Procedure Detail Performing Clinician Start: 02-02-2017 End: 02-02-2017 ALEXANDER Hurst MD Work Phone: Start: 02-02-2017 End: 02-02-2017 Follow Up Appt 6 months Douglas Hurst MD Work Phone: Start: 01-07-2017 End: 01-07-2017 Nurse, Teaching, Wound Check (no charge) Douglas Hurst MD Work Phone: Start: 01-05-2017 End: 01-22-2017 BWA Rivka Miller Daly C SUPPLIER QUALITY MANAGER Work Phone: Start: 01-05-2017 End: 01-22-2017 Follow Up Appt 3 months Rivka Miller Kalie yeny [employer]OPEDIC SHOE MAKER Work Phone: Start: 01-05-2017 End: 01-22-2017 Pulmonary Function Test - complete Rivka Miller Daly [employer] SHOE MAKER Work Phone: Start: 01-05-2017 End: 01-22-2017 Titration with Follow up (pt not on cpap) Rivka Kauffman ORTHOPEDIC SHOE MAKER Work Phone: Start: 12-29-2016 End: 04-07-2017 *Hepatic Function Panel Douglas Hurst MD Work Phone: Start: 12-29-2016 End: 04-07-2017 Lipid 1996 panel - Serum or Plasma Douglas Hurst MD Work Phone: Start: 12-29-2016 End: 12-30-2016 Referral to craps manager Douglas Hurst MD Work Phone: Start: 12-26-2016 End: 12-29-2016 *BMP Douglas Hurst MD Work Phone: Start: 12-26-2016 End: 12-29-2016 CBC W Auto Differential panel - Blood Douglas Hurst MD Work Phone: Start: 12-26-2016 End: 12-29-2016 Chest x-ray Douglas Hurst MD Work Phone: Start: 12-26-2016 End: 12-29-2016 INR in Platelet poor plasma by Coagulation assay Douglas Hurst MD Work Phone: Start: 12-26-2016 End: 12-29-2016 Left Heart Cath Douglas Hurst MD Work Phone: Start: 12-09-2016 End: 12-26-2016 Follow Up BP Check Douglas Hurst MD Work Phone: Start: 12-02-2016 End: 12-23-2016 Complete sleep workup (PSG,CPAP as indicated) & Follow up Douglas Hurst MD Work Phone: Start: 12-02-2016 End: 12-02-2016 ALEXANDER Hurst MD Work Phone: Start: 12-02-2016 End: 12-23-2016 Echocardiography Douglas Hurst MD Work Phone: Start: 12-02-2016 End: 12-02-2016 Follow Up Appt 6 months Douglas Hurst MD Work Phone: Start: 12-02-2016 End: 12-26-2016 Stress Echocardiogram (treadmill) Douglas Hurst MD Work Phone: Start: 09-29-2016 End: 10-02-2016 *Hepatic Function Panel Douglas Hurst MD Work Phone: Start: 09-29-2016 End: 10-02-2016 Lipid 1996 panel - Serum or Plasma Douglas Hurst MD Work Phone: Start: 05-26-2016 End: 05-26-2016 ALEXANDER Hurst MD Work Phone: Start: 05-26-2016 End: 05-26-2016 Follow Up Appt 6 months Douglas Hurst MD Work Phone: Start: 03-25-2016 End: 04-02-2016 *Hepatic Function Panel Douglas Hurst MD Work Phone: Start: 03-25-2016 End: 04-02-2016 Lipid 1996 panel - Serum or Plasma Douglas Hurst MD Work Phone: Start: 02-20-2016 End: 12-26-2016 Physical Therapy General Torres Islas Work Phone: Start: 02-04-2016 End: 12-26-2016 X-ray exam of thigh Torres Miller Roshan Work Phone: Start: 11-06-2015 End: 11-06-2015 ALEXANDER Hurst MD Work Phone: Start: 11-06-2015 End: 11-06-2015 Follow Up Appt 6 months Douglas Hurst MD Work Phone: Start: 09-18-2015 End: 09-18-2015 *Hepatic Function Panel Douglas Hurst MD Work Phone: Start: 09-18-2015 End: 09-25-2015 Lipid 1996 panel - Serum or Plasma Douglas Hurst MD Work Phone: Start: 05-01-2015 End: 05-01-2015 DJN Douglas Hurst MD Work Phone: Start: 05-01-2015 End: 05-01-2015 Follow Up Appt 6 months Douglas Hurst MD Work Phone: Start: 05-01-2015 End: 05-01-2015 Follow Up BP Check Douglas Hurst MD Work Phone: Start: 03-25-2015 End: 03-25-2015 *Hepatic Function Panel Douglas Hurst MD Work Phone: Start: 03-25-2015 End: 03-25-2015 Lipid 1996 panel - Serum or Plasma Douglas Hurst MD Work Phone: Start: 10-03-2014 End: 10-03-2014 *Hepatic Function Panel Douglas Hurst MD Work Phone: Start: 10-03-2014 End: 10-03-2014 Lipid 1996 panel - Serum or Plasma Douglas Hurst MD Work Phone: Start: 05-02-2014 End: 05-02-2014 ALEXANDER Hurst MD Work Phone: Start: 05-02-2014 End: 05-02-2014 Follow Up Appt 1 year [facility] Work Phone: Start: 03-15-2014 End: 04-13-2014 *Hepatic Function Panel S[facility]il Llamas Start: 03-15-2014 End: 04-13-2014 Lipid 1996 panel - Serum or Plasma Naun Orozco MD Start: 09-13-2013 End: 10-03-2013 *Hepatic Function Panel Senthil Llamas Start: 09-13-2013 End: 10-03-2013 Lipid 1996 panel - Serum or Plasma Naun Orozco MD Start: 04-27-2013 End: 04-12-2014 Ecg routine ecg w/least 12 lds w/i&r Douglas Hurst MD Work Phone: Start: 04-21-2013 End: 05-02-2014 Complete sleep workup (PSG,CPAP as indicated) & Follow up Douglas Hurst MD Work Phone: Start: 04-21-2013 End: 04-21-2013 Ecg routine ecg w/least 12 lds w/i&r Douglas Hurst MD Work Phone: Start: 04-21-2013 End: 04-29-2013 INR in Platelet poor plasma by Coagulation assay Douglas Hurst MD Work Phone: Start: 04-21-2013 End: 04-21-2013 Nurse, Teaching, Wound Check (no charge) Douglas Hurst MD Work Phone: Start: 04-19-2013 End: 04-19-2013 DJN Douglas Hurst MD Work Phone: Start: 04-19-2013 End: 04-19-2013 Follow Up Appt 1 year [facility] Work Phone: Start: 04-19-2013 End: 04-12-2014 Stress Echocardiogram (treadmill) Douglas Hurst MD Work Phone: Start: 03-15-2013 End: 04-14-2013 *Hepatic Function Panel Senthil Llamas Start: 03-15-2013 End: 04-14-2013 Lipid 1996 panel - Serum or Plasma Naun Orozco MD Start: 10-06-2012 End: 10-08-2012 *Hepatic Function Panel Darin Herrera MD Start: 10-06-2012 End: 10-08-2012 Lipid 1996 panel - Serum or Plasma Darin Herrera MD Start: 08-05-2012 End: 08-05-2012 Ecg routine ecg w/least 12 lds w/i&r Darin Herrera MD Start: 08-05-2012 End: 08-05-2012 Follow Up Appt 6 months Darin Herrera MD Start: 02-05-2012 End: 02-05-2012 Follow Up Appt 6 months Darin Herrera MD Start: 11-14-2011 End: 11-14-2011 *Hepatic Function Panel Darin Herrera MD Start: 11-14-2011 End: 11-14-2011 Lipid 1996 panel - Serum or Plasma Darin Herrera MD Start: 10-15-2011 End: 11-14-2011 *Hepatic Function Panel Darin Herrera MD Start: 10-15-2011 End: 11-14-2011 Lipid 1996 panel - Serum or Plasma Darin Herrera MD Start: 07-31-2011 End: 07-31-2011 Follow Up Appt 6 months Darin Herrera MD Plan of Treatment Date Care Activity Detail Author Start: 10-06-2017 End: 04-10-2017 *Hepatic Function Panel *Hepatic Function Panel [facility] Work Phone: Start: 10-06-2017 End: 04-10-2017 Lipid panel [AGGREGATE] *Lipid Profile CC PCP [facility] Work Phone: Start: 08-13-2017 End: 08-13-2017 Appointment Appointment [facility] Work Phone: Start: 04-03-2017 End: 12-29-2016 *Hepatic Function Panel *Hepatic Function Panel [facility] Work Phone: Start: 04-03-2017 End: 12-29-2016 Lipid panel [AGGREGATE] *Lipid Profile CC PCP [facility] Work Phone: Start: 02-02-2017 End: 02-02-2017 Cardiac Rehab Card[facility] Re[facility] [address] [place], [address] [facility] Work Phone: Start: 02-02-2017 End: 02-02-2017 DJN DJN [facility] Work Phone: Start: 02-02-2017 End: 02-02-2017 Follow Up Appt 6 months Follow Up Appt 6 months [facility] Work Phone: Start: 01-05-2017 End: 01-22-2017 BWA BWA [facility] Work Phone: Start: 01-05-2017 End: 01-22-2017 Follow Up Appt 3 months Follow Up Appt 3 months [facility] Work Phone: Start: 01-05-2017 End: 01-22-2017 Pulmonary Function Test - complete Pulmonary Function Test - complete [facility] Work Phone: Start: 01-05-2017 End: 01-22-2017 Titration with Follow up (pt not on cpap) Titration with Follow up (pt not on cpap) [facility] Work Phone: Start: 12-29-2016 End: 12-29-2016 Cardiac Rehab [facility] [address] [place], [address] [facility] Work Phone: Start: 12-26-2016 End: 12-29-2016 *BMP *BMP [facility] Work Phone: Start: 12-26-2016 End: 12-29-2016 CBC W Auto Differential panel - Blood *CBC without Diff [facility] Work Phone: Start: 12-26-2016 End: 12-29-2016 Chest x-ray X-Ray, Chest, PA & Lateral [facility] Work Phone: Start: 12-26-2016 End: 12-29-2016 INR Coag RelTime (PPP) *PT/INR [facility] Work Phone: Start: 12-26-2016 End: 12-29-2016 Left Heart Cath Left Heart Cath [facility] [employer] [facility] Work Phone: Start: 12-09-2016 End: 12-26-2016 Follow Up BP Check Follow Up BP Check [facility] Work Phone: Start: 12-02-2016 End: 12-23-2016 Complete sleep workup (PSG,CPAP as indicated) & Follow up Complete sleep workup (PSG,CPAP as indicated) & Follow up [facility] [employer] Work Phone: Start: 12-02-2016 End: 12-02-2016 ALEXANDER MUNOZ [facility] Work Phone: Start: 12-02-2016 End: 12-02-2016 Echocardiography Echocardiogram (complete) [facility] Work Phone: Start: 12-02-2016 End: 12-02-2016 Follow Up Appt 6 months Follow Up Appt 6 months [facility] Work Phone: Start: 12-02-2016 End: 12-02-2016 Stress Echocardiogram (treadmill) Stress Echocardiogram (treadmill) [facility] Work Phone: Start: 09-29-2016 End: 10-02-2016 *Hepatic Function Panel *Hepatic Function Panel [facility] Work Phone: Start: 09-29-2016 End: 10-02-2016 Lipid panel [AGGREGATE] *Lipid Profile CC PCP [facility] [employer] Work Phone: Start: 05-26-2016 End: 05-26-2016 ALEXANDER MUNOZ [facility] Work Phone: Start: 05-26-2016 End: 05-26-2016 Follow Up Appt 6 months Follow Up Appt 6 months [facility] Work Phone: Start: 03-25-2016 End: 04-02-2016 *Hepatic Function Panel *Hepatic Function Panel [facility] Work Phone: Start: 03-25-2016 End: 04-02-2016 Lipid panel [AGGREGATE] *Lipid Profile CC PCP [facility] Work Phone: Start: 02-20-2016 End: 02-20-2016 Physical Therapy General Physical Therapy [facility], [address] [place] [address], [id number] [facility] Work Phone: Start: 02-04-2016 End: 12-26-2016 X-ray exam of thigh X-Ray, Femur [facility] Work Phone: Start: 11-06-2015 End: 11-06-2015 ALEXANDER MUNOZ [facility] Work Phone: Start: 11-06-2015 End: 11-06-2015 Follow Up Appt 6 months Follow Up Appt 6 months [facility] Work Phone: Start: 09-25-2015 End: 09-18-2015 *Hepatic Function Panel *Hepatic Function Panel [facility] Work Phone: Start: 09-18-2015 End: 09-25-2015 Lipid panel [AGGREGATE] *Lipid Profile CC PCP [facility] Work Phone: Start: 05-01-2015 End: 05-01-2015 ALEXANDER MUNOZ [facility] Work Phone: Start: 05-01-2015 End: 05-01-2015 Follow Up Appt 6 months Follow Up Appt 6 months [facility] Work Phone: Start: 05-01-2015 End: 05-01-2015 Follow Up BP Check Follow Up BP Check [facility] Work Phone: Start: 04-05-2015 End: 03-25-2015 *Hepatic Function Panel *Hepatic Function Panel [facility] Work Phone: Start: 04-05-2015 End: 03-25-2015 Lipid panel [AGGREGATE] *Lipid Profile CC PCP [facility] Work Phone: Start: 10-03-2014 End: 10-03-2014 *Hepatic Function Panel *Hepatic Function Panel [facility] Work Phone: Start: 10-03-2014 End: 10-03-2014 Lipid panel [AGGREGATE] *Lipid Profile CC PCP [facility] Work Phone: Start: 05-02-2014 End: 05-02-2014 DJN DJN [facility] Work Phone: Start: 05-02-2014 End: 05-02-2014 Follow Up Appt 1 year Follow Up Appt 1 year [facility] Work Phone: Start: 03-15-2014 End: 04-13-2014 *Hepatic Function Panel *Hepatic Function Panel [facility] Work Phone: Start: 03-15-2014 End: 04-13-2014 Lipid panel [AGGREGATE] *Lipid Profile CC PCP [facility] Work Phone: Start: 09-13-2013 End: 10-03-2013 *Hepatic Function Panel *Hepatic Function Panel [facility] Work Phone: Start: 09-13-2013 End: 10-03-2013 Lipid panel [AGGREGATE] *Lipid Profile CC PCP [facility] Work Phone: Start: 04-27-2013 End: 04-12-2014 Ecg routine ecg w/least 12 lds w/i&r EKG (In office) [facility] Work Phone: Start: 04-21-2013 End: 04-21-2013 Complete sleep workup (PSG,CPAP as indicated) & Follow up Complete sleep workup (PSG,CPAP as indicated) & Follow up [facility] Work Phone: Start: 04-21-2013 End: 04-21-2013 Ecg routine ecg w/least 12 lds w/i&r EKG (In office) [facility] Work Phone: Start: 04-21-2013 End: 04-29-2013 INR Coag RelTime (PPP) *PT/INR - Standing Order [facility] Work Phone: Start: 04-19-2013 End: 04-19-2013 DJN DJN [facility] Work Phone: Start: 04-19-2013 End: 04-19-2013 Follow Up Appt 1 year Follow Up Appt 1 year [facility] Work Phone: Start: 04-19-2013 End: 04-19-2013 Stress Echocardiogram (treadmill) Stress Echocardiogram (treadmill) [facility] Work Phone: Start: 03-15-2013 End: 04-14-2013 *Hepatic Function Panel *Hepatic Function Panel [facility] Work Phone: Start: 03-15-2013 End: 04-14-2013 Lipid panel [AGGREGATE] *Lipid Profile [facility] Work Phone: Start: 10-06-2012 End: 10-08-2012 *Hepatic Function Panel *Hepatic Function Panel [facility] Work Phone: Start: 10-06-2012 End: 10-08-2012 Lipid panel [AGGREGATE] *Lipid Profile [facility] Work Phone: Start: 08-05-2012 End: 08-05-2012 Ecg routine ecg w/least 12 lds w/i&r EKG (In office) [facility] Work Phone: Start: 08-05-2012 End: 08-05-2012 Follow Up Appt 6 months Follow Up Appt 6 months [facility] Work Phone: Start: 02-05-2012 End: 02-05-2012 Follow Up Appt 6 months Follow Up Appt 6 months [facility] Work Phone: Start: 01-22-2012 End: 11-14-2011 *Hepatic Function Panel *Hepatic Function Panel [facility] [employer] Work Phone: Start: 01-22-2012 End: 11-14-2011 Lipid panel [AGGREGATE] *Lipid Profile [facility] [employer] [facility] Work Phone: Start: 10-15-2011 End: 11-14-2011 *Hepatic Function Panel *Hepatic Function Panel [facility] Work Phone: Start: 10-15-2011 End: 11-14-2011 Lipid panel [AGGREGATE] *Lipid Profile [facility] Work Phone: Start: 07-31-2011 End: 07-31-2011 Follow Up Appt 6 months Follow Up Appt 6 months [facility] Work Phone: Patient Education [facility] Work Phone: Additional Source Comments FOR RECORDS PERTAINING TO PATIENTS WHO ARE OR HAVE BEEN ENROLLED IN A CHEMICAL DEPENDENCY/SUBSTANCEABUSE PROGRAM, SOME INFORMATION MAY BE OMITTED. This clinical summary was aggregated from multiple sources. Caution should be exercised in using it in the provision of clinical care. This summary normalizes information from multiple sources, and as a consequence, information in this document may materially change the coding, format and clinical context of patient data. In addition, data may be omitted in some cases. CLINICAL DECISIONS SHOULD BE BASED ON THE PRIMARY CLINICAL RECORDS. [employer] [facility]. provides no warranty or guarantee of the accuracy or completeness of information in this document.
--- NOTE | 2023-07-14 03:28 | HP.PCM.HOS_ITS ---
HPI - General General Date of Admission: 07/14/23 Date of Service: 07/14/23 Chief Complaint: Shortness of Breath HPI Narrative THANIA AMARO, is a 77 F who presented to the emergency department at [facility] on 07/14/2023 complaining of shortness of breath most notable with exertion. Patient states that on Thursday she had some left pain in her left chest wall and rib area for which she took some Advil and placed a heating pad on her torso. She reported that the pain improved but then returned and was more severe on Thursday evening. It eventually resolved and she has not had it since. She noted that today she noted that she had worsening shortness of breath most notably with exertion and felt like she was working harder to breathe. She was going to try to hold off till tomorrow but decided to come to the emergency department when her shortness of breath got worse. Her sats were found to be low and she was placed on a nonrebreather by the squad with improved oxygenation and 95%. She denies any recent travel, recent surgeries, change in mobility, use of estrogen products, and states that she is not up-to-date on her cancer screening. She is unclear the last time she had a colonoscopy or mammogram. She states her father was diagnosed with a pulmonary embolism and actually from acute PE after he was diagnosed with colon cancer. She has had no previous VTE and has no other family history of VTE. Vital signs on presentation showed a temperature of 96.9, heart rate 107, blood pressure was 151/75 and respiratory rate was 28. Oxygen saturations were 96% on a nonrebreather at 10 L and she was assessed on room air and her sats dropped to 88% and have fluctuated and actually required up titration to 4 L with current saturations on 4 L at 89 she remains tachycardic and tachypneic blood pressure r emains elevated. Her CBC is unremarkable other than a left shift with a 76.5% neutrophilia that is likely reactive. Coags are normal. Chemistry panel shows mild hypokalemia with a potassium of 3.4. Her renal functions normal. Glucose is 150. Lactic acid was 0.9. Troponin was 140 and BNP was 66.9. X-ray was unremarkable. EKG shows sinus tachycardia she does have a Q wave and inverted T in lead III but no S wave in lead I. Her chest x-ray is unremarkable. CTA of the chest was performed as her D-dimer is elevated at 4.89 and demonstrated with minimal RV strain and no saddle embolus, extensive bilateral pulmonary thromboembolic disease, left-sided pulmonary infarction and minimal left pleural effusion, hepatosteatosis, and multiple thyroid nodules. She was placed on a heparin drip and request for admission was made. [facility] Medical History 4-beat run of polymorphic nonsustained V-Tach Abnormal findings on diagnostic imaging of heart and coronary circulation Atherosclerosis of coronary artery of [place] heart without angina pectoris Benign essential HTN Bilateral carotid bruits Body mass index (BMI) 45.0-49.9, adult CAD (coronary artery disease) Carotid bruit Chest pain Daytime somnolence Dyspnea Excessive sleepiness Fatigue GERD (gastroesophageal reflux disease) Leg pain, right Long-term use of high-risk medication ALBER (obstructive sleep apnea) Palpitations Pes anserinus tendinitis or bursitis Pure hypercholesterolemia Restless leg syndrome Strain of muscle, fascia and tendon of the posterior muscle group at thigh level, right thigh, initial encounter Home Medications nitroglycerin 0.4 mg sublingual tablet 0.4 mg sublingual UD PRN CHEST PAIN #25 tabs 11/29/18 [Rx Last Taken Unknown] pravastatin 40 mg tablet 40 mg PO QODAY cholesterol #45 tabs 08/13/21 [Rx Last Taken Unknown] metoprolol tartrate 25 mg tablet 12.5 mg (1/2 x 25 mg) PO BID htn #90 tabs 07/29/22 [Rx Last Taken Unknown] olmesartan 20 mg tablet 20 mg PO BID htn #180 tabs 07/29/22 [Rx Last Taken Unknown] aspirin 81 mg tablet,delayed release 81 mg PO DAILY heart 02/19/23 [History Last Taken Unknown] amlodipine 5 mg tablet 10 mg PO DAILY htn 07/14/23 [History Last Taken Unknown] hydrochlorothiazide 12.5 mg capsule 25 mg PO QAM htn 07/14/23 [History Last Taken Unknown] Allergy/AdvReac Type Severity Reaction Status Date / Time Iodinated Contrast Media Allergy Severe HIVES Verified 07/14/23 01:08 [Iodinated Contrast- Oral and IV Dye] isosorbide AdvReac Intermediate SOB, chest Verified 01/30/24 01:08 pressure, cough Family History (Updated 07/14/23 @ 04:[address] Joselyn Castro DO) Father , Age 62 from PE Pulmonary embolism Colon cancer Surgical History History of bilateral cataract extraction History of coronary artery stent placement (12/29/16) History of PTCA Hx of cardiac cath Status post biopsy of thyroid gland Social History Smoking Status: Never smoker alcohol intake: never substance use type: does not use caffeine: Yes Type: carbonated beverages Number of servings: 1 ROS Constitutional Constitutional: Denies anorexia, change in weight, chills, fatigue, fever(s), malaise, night sweats, weakness or other Eyes Eyes: Denies blurry vision, change in eye color, change in vision, discharge from eye(s), double vision, erythema, eye pain, loss of vision or other ENT HEENT: Denies abnormal hearing, dysphagia, ear pain, epistaxis, headache(s), hearing loss, nasal congestion, nasal discharge, post nasal drip, sinus pressure, sore throat or other Cardiovascular Cardiovascular: Reports chest pain and dyspnea on exertion; Denies claudication, edema, lightheadedness, orthopnea, palpitations, paroxysmal nocturnal dyspnea, rapid heart rate, syncope or other Respiratory/Chest Respiratory/Chest: Reports dyspnea, shortness of breath at rest and shortness of breath with exertion; Denies cough, excessive phlegm production, hemoptysis, productive cough, wheezing or other Gastrointestinal Gastrointestinal: Denies abdominal pain, coffee ground emesis, constipation, diarrhea, dyspepsia, hematemesis, hematochezia, loose stools, melena, nausea, vomiting or other Genitourinary Genitourinary: Denies burning urination, difficulty urinating, dysuria, hematuria, nocturia, urinary frequency, urinary hesitancy, urinary incontinence, urinary urgency or other Musculoskeletal Musculoskeletal: Denies arthralgias, back pain, joint pain, joint stiffness, joint swelling, myalgias, neck pain or other Neurologic Neurologic: Denies abnormal gait, abnormal speech, confusion, disequilibrium, dizziness, focal weakness, headache(s), numbness, paresthesias, seizure-like activity, seizures, syncope, tingling, tremor(s) or other Psychiatric Psychiatric: Denies anxiety, depression, homicidal ideation, suicidal ideation or other Endocrine Endocrinology: Denies change in body appearance, cold intolerance, excessive swe ating, heat intolerance, polydipsia, polyuria or other Hematologic/Lymphatic Hematologic/Lymphatic: Denies anemia, easy bleeding, easy bruising, lympha denopathy or other Allergic/Immunologic Allergic/Immunologic: Denies rhinitis, hives, eczemia, asthma or other Vital Signs Vital Signs Vital Signs: 07/13/23 23:22 07/13/23 23:26 07/13/23 23:27 Temperature 96.9 F L 96.9 F L Temperature Source Temporal Temporal Pulse Rate 107 H 104 H Respiratory Rate 28 H 28 H Respiratory Effort Short of Breath Labored Accessory Muscle Use Blood Pressure 151/75 H 151/75 H Blood Pressure Mean 100 100 Pulse Ox 96 92 Oxygen Delivery Method Non-Rebreather Room Air Room Air Oxygen Flow Rate (L/min) 07/13/23 23:50 07/14/23 00:07 07/14/23 00:14 Temperature Temperature Source Pulse Rate Respiratory Rate Respiratory Effort Blood Pressure Blood Pressure Mean Pulse Ox 88 94 Oxygen Delivery Method Nasal Cannula Nasal Cannula Room Air Oxygen Flow Rate (L/min) 2 3 07/14/23 01:00 07/14/23 01:43 Temperature Temperature Source Pulse Rate 107 H Respiratory Rate 27 H Respiratory Effort Blood Pressure 161/84 H Blood Pressure Mean 109 Pulse Ox 91 84 Oxygen Delivery Method Nasal Cannula Nasal Cannula Oxygen Flow Rate (L/min) 3 3 Weight Weight: 121.9 kg Body Mass Index (BMI) 45.8 Physical Exam Const alert, oriented x3, no apparent distress, healthy appearing and well nourished; Negative for average body habitus Constitutional Narrative: Morbidly obese, older, white female, sitting up in bed, appears comfortable and nontoxic General Appearance: cooperative HEENT normocephalic, head/scalp atraumatic, hearing grossly normal bilaterally and moist oral mucous membranes HEENT Narrative: Upper dentures in place, lower dentition is poor, Mallampati is 3, no thrush Eyes PERRL, EOMs intact bilaterally and conjunctivae normal Eyes Narrative: No scleral icterus Neck no lymphadenopathy and supple Neck Narrative: Neck is short and thick with redundant tissue, trachea is midline Resp normal respiratory effort, no retractions, no use of accessory muscles and clear to auscultation bilaterally Resp Narrative: Patient is tachypneic but no signs of extremis Auscultation: Negative for rales, rhonchi or wheezes Cardio regular rhythm, S1 normal heart sound, S2 normal heart sound, no murmurs, no rub, no gallops and no clicks Cardio Narrative: Tachycardia GI normal to inspection, nondistended, normoactive bowel sounds, soft to palpation and non-tender GI Narrative: Large protuberant abdomen Extremity Extremity Narrative: Trace bilateral lower extremity edema, no cyanosis or clubbing Skin no rashes or lesions noted, no wounds, skin turgor normal, no jaundice, no petechiae and no mottling Neuro oriented x3, CN's II-XII intact bilaterally, moves all extremities and no focal motor deficits Speech: speech normal Psych affect normal Psych Narrative: Very pleasant, interacts appropriately, eye contact is good Results Lab / Micro Data 07/14/23 00:26 07/14/23 00:26 Labs: Laboratory Results - last 24 hr 07/14/23 00:26: WBC 10.9, RBC 4.72, Hgb 13.7, Hct 42.1, MCV 89.2, MCH 29.0, MCHC 32.5, RDW Std Deviation 37.8, RDW Coeff of Alondra 11.7, Plt Count 225, MPV 9.2, Immature Gran % (Auto) 0.300, Neut % (Auto) 76.5 H, Lymph % (Auto) 14.9 L, [place] % (Auto) 6.4, Eos % (Auto) 1.6, Baso % (Auto) 0.3, Absolute Neuts (auto) 8.4 H, Absolute Lymphs (auto) 1.62, Nucleated RBC % 0, D-Dimer Quant (PE/DVT) 4.89 H*, Sodium 141, Potassium 3.4 L, Chloride 109 H, Carbon Dioxide 27.0, Anion Gap 5, BUN 17, Creatinine 0.98, Estim Creat Clear Calc 62.90, Est GFR (MDRD) Af Amer 71, Est GFR (MDRD) Non-Af 59 L, BUN/Creatinine Ratio 17.3, Glucose 150 H, Lactic Acid 0.9, Calcium 9.1, Troponin I High Sens 140 H*, B-Natriuretic Peptide 66.9 Micro: Microbiology 07/14/23 00:26 Mucosa - Nose SARS-CoV-2, Influenza & RSV (PCR) - Final Imaging Radiology Impression Chest X-Ray 07/14/23 00:15 IMPRESSION: Left lung base atelectasis versus infiltrate Electronically Signed: Julien Payne MD at 2:10 EST , Chest CTA 07/14/23 01:24 IMPRESSION: Extensive bilateral pulmonary thromboembolic disease, with associated findings of minimal right ventricular strain. No saddle embolus. Infiltrate in the left lower lobe consistent with atelectasis and possible small pulmonary infarction. Minimal left pleural effusion. Nonstandard communication protocol initiated and completed. N.B. : The above Results were Read Back by Kai Miner MD to Mary Cano DO, and understanding confirmed on 07/14/2023 03:16:59 (ET). Electronically Signed: Kai Miner MD at 3:26 EST , Assessment & Plan Assessment/Plan (1) Acute respiratory failure with hypoxia: (2) Pulmonary embolism: (3) Elevated troponin: (4) Tachycardia: (5) Hypokalemia: PLAN: Plan Acute hypoxic respiratory failure secondary to acute pulmonary embolism -CTA of the chest shows extensive bilateral pulmonary thromboembolic disease with minimal RV strain and no saddle embolus, probable small pulmonary infarct in the left lower lobe -Heparin drip started emergency department and will continue -Eventually will need transition over to DOAC -Check echocardiogram -BNP is normal but cardiac enzymes are slightly elevated -Cycle cardiac enzymes -Continue supplemental oxygen and wean as able -Will check lower extremity Dopplers -Will need ambulatory pulse ox prior to discharge -Patient is not up-to-date on her acute or colonoscopy -Father had colon cancer and as a complication of a related pulmonary embolism that was diagnosed after his colon cancer -Recommend outpatient follow-up with hematology after discharge Elevated troponin -Likely related to the above -We will cycle cardiac enzymes -Check echocardiogram -Likely related to cardiac strain with large clot burden Tachycardia -Secondary to acute PE -Heart rates should improve -Will continue home beta-bang Hypokalemia -40 mill equivalents p.o. potassium given -Repeat lab in a.m. -Check a.m. magnesium level CAD/HTN/HPL -PCI with SUPA to LAD in 2014 and again in 2017 -PCI to ostium first diagonal and proximal LAD and 2004 -Continue home aspirin -Continue home HCTZ -Continue home metoprolol -Continue home olmesartan -Continue home pravastatin -Recommend ongoing outpatient cardiology follow-up after discharge Carotid artery stenosis -Recent carotid artery duplex scan done on 03/09/2023 showing less than 50% bilateral carotid artery stenosis -Continue pravastatin/aspirin ALBER -Continue CPAP with 15 cm of water -Recommend outpatient follow-up Morbid obesity -BMI is 45.9 -Complicates treatment, prognosis, outcomes -Recommend weight loss DVT prophylaxis -Heparin drip for now and transition to DOAC CODE STATUS -Full code is verified on admission Charges/Coding Visit Charges Inpatient E&M: 15039 Init Hosp L2
--- OUTSIDE RECORDS SUMMARY | 2023-07-14 03:45 | XMS RPT_ITS | CCD ---
Author Name Unknown Address [address] [place] [address] Organization [facility] Care Team Providers Care Morphologist Name Role Phone Som Delcid Stephanie Unavailable [...] by mouth twice a day AMLODIPINE BESYLATE [id number] Darin Herrera MD Problems Active Problems Problem Classification Problem Date Documented Date Episodic/Chronic Cardiac dysrhythmias (2 sources) Atrial fibrillation; Translations: [Paroxysmal atrial fibrillation] Onset: 04-21-2013 Resolved: 11-02-2015 11-02-2015 Chronic Coronary atherosclerosis and other heart disease (2 sources) Atherosclerotic heart disease of [place] coronary artery without angina pectoris; Translations: [Coronary [...] (1 source) Long-term drug therapy; Translations: [Other half-way (current) drug therapy] Onset: 10-15-2010 10-15-2010 Unclassified [...] 11:38-0400 BP Diastolic 62 mm[Hg] Harumi DeFinis [facility] Work Phone: 02-02-2017 11:38-0400 BP Systolic 120 mm[Hg] Harumi DeFinis [facility] Work Phone: 02-02-2017 11:38-0400 Height 165.1 cm Harumi DeFinis [facility] Work Phone: 02-02-2017 11:38-0400 Pulse (Heart Rate) 62 /min Harumi DeFinis [facility] Work Phone: 02-02-2017 11:38-0400 Respiratory Rate 18 /min Harumi DeFinis [facility] Work Phone: 02-02-2017 11:38-0400 Weight 119.75 kg Harumi DeFinis [facility] Work Phone: 01-05-2017 12:07-0400 Body Temperature 98.2 [degF] Harumi DeFinis [facility] Work Phone: 05-26-2016 13:53-0500 BSA [...] End: 01-22-2017 BWA Rivka Miller Daly C [employer] Work Phone: Start: 01-05-2017 End: 01-22-2017 Follow Up Appt 3 months Rivka Miller Kalie yeny [employer] Work Phone: Start: 01-05-2017 End: 01-22-2017 Pulmonary Function Test - complete Rivka Miller Daly [employer] Work Phone: Start: 01-05-2017 End: 01-22-2017 Titration with Follow up (pt not on cpap) Rivka Kauffman [employer] Work Phone: Start: 12-29-2016 End: 04-07-2017 *Hepatic Function Panel Douglas Hurst MD Work Phone: Start: 12-29-2016 End: 04-07-2017 Lipid 1996 panel - Serum or Plasma Douglas Hurst MD Work Phone: Start: 12-29-2016 End: 12-30-2016 Referral to monorail operator Douglas Hurst MD Work Phone: Start: 12-26-2016 [...] 04-10-2017 *Hepatic Function Panel *Hepatic Function Panel [facility] Work Phone: Start: 10-06-2017 End: 04-10-2017 Lipid panel [AGGREGATE] *Lipid Profile CC PCP [facility] Work Phone: Start: 08-13-2017 End: 08-13-2017 Appointment Appointment [facility] Work Phone: Start: 04-03-2017 End: 12-29-2016 *Hepatic Function Panel *Hepatic Function Panel [facility] Work Phone: Start: 04-03-2017 End: 12-29-2016 Lipid panel [AGGREGATE] *Lipid Profile CC PCP [facility] Work Phone: Start: 02-02-2017 End: 02-02-2017 Cardiac Rehab Card[facility] [address] [place], [address] [facility] [employer] [facility] Work Phone: Start: 02-02-2017 End: 02-02-2017 DJN DJN [facility] Work Phone: Start: 02-02-2017 End: 02-02-2017 Follow Up Appt 6 months Follow Up Appt 6 months [facility] Work Phone: Start: 01-05-2017 End: 01-22-2017 BWA BWA [facility] Work Phone: Start: 01-05-2017 End: 01-22-2017 Follow Up Appt 3 months Follow Up Appt 3 months [facility] Work Phone: Start: 01-05-2017 End: 01-22-2017 Pulmonary Function Test - complete Pulmonary Function Test - complete [facility] Work Phone: Start: 01-05-2017 End: 01-22-2017 Titration with Follow up (pt not on cpap) Titration with Follow up (pt not on cpap) [facility] Work Phone: Start: 12-29-2016 End: 12-29-2016 Cardiac Rehab Cardiac Re[facility] [address] [place], [address] [facility] Work Phone: Start: 12-26-2016 End: 12-29-2016 *BMP *BMP [facility] Work Phone: Start: 12-26-2016 End: 12-29-2016 CBC W Auto Differential panel - Blood *CBC without Diff [facility] Work Phone: Start: 12-26-2016 End: 12-29-2016 Chest x-ray X-Ray, Chest, PA & Lateral [facility] Work Phone: Start: 12-26-2016 End: 12-29-2016 INR Coag RelTime (PPP) *PT/INR [facility] Work Phone: Start: 12-26-2016 End: 12-29-2016 Left Heart Cath Left Heart Cath [facility] Work Phone: Start: 12-09-2016 End: 12-26-2016 Follow Up BP Check Follow Up BP Check [facility] Work Phone: Start: 12-02-2016 End: 12-23-2016 Complete sleep workup (PSG,CPAP as indicated) & Follow up Complete sleep workup (PSG,CPAP as indicated) & Follow up [facility] [facility] Work Phone: Start: 12-02-2016 End: 12-02-2016 ALEXANDER MUNOZ [facility] Work Phone: Start: 12-02-2016 End: 12-02-2016 Echocardiography Echocardiogram (complete) [facility] Work Phone: Start: 12-02-2016 End: 12-02-2016 Follow Up Appt 6 months Follow Up Appt 6 months [facility] Work Phone: Start: 12-02-2016 End: 12-02-2016 Stress Echocardiogram (treadmill) Stress Echocardiogram (treadmill) [facility] Work Phone: Start: 09-29-2016 End: 10-02-2016 *Hepatic Function Panel *Hepatic Function Panel [facility] Work Phone: Start: 09-29-2016 End: 10-02-2016 Lipid panel [AGGREGATE] *Lipid Profile CC PCP [facility] Work Phone: Start: 05-26-2016 End: 05-26-2016 ALEXANDER MUNOZ [facility] Work Phone: Start: 05-26-2016 End: 05-26-2016 Follow Up Appt 6 months Follow Up Appt 6 months [facility] Work Phone: Start: 03-25-2016 End: 04-02-2016 *Hepatic Function Panel *Hepatic Function Panel [facility] Work Phone: Start: 03-25-2016 End: 04-02-2016 Lipid panel [AGGREGATE] *Lipid Profile CC PCP [facility] Work Phone: Start: 02-20-2016 End: 02-20-2016 Physical Therapy General Physical Therapy [facility], [address] [place] [address], [id number] [facility] Work Phone: Start: 02-04-2016 End: 12-26-2016 X-ray exam of thigh X-Ray, Femur [facility] Work Phone: Start: 11-06-2015 End: 11-06-2015 ALEXANDER MUNOZ [facility] Work Phone: Start: 11-06-2015 End: 11-06-2015 Follow Up Appt 6 months Follow Up Appt 6 months [facility] Work Phone: Start: 09-25-2015 End: 09-18-2015 *Hepatic Function Panel *Hepatic Function Panel [facility] Work Phone: Start: 09-18-2015 [...] Up BP Check Follow Up BP Check [facility] Work Phone: Start: 04-05-2015 End: 03-25-2015 *Hepatic Function Panel *Hepatic Function Panel [facility] Work Phone: Start: 04-05-2015 End: 03-25-2015 Lipid panel [AGGREGATE] *Lipid Profile CC PCP [facility] Work Phone: Start: 10-03-2014 End: 10-03-2014 *Hepatic Function Panel *Hepatic Function Panel [facility] Work Phone: Start: 10-03-2014 End: 10-03-2014 Lipid panel [AGGREGATE] *Lipid Profile CC PCP [facility] Work Phone: Start: 05-02-2014 End: 05-02-2014 DJN DJN [facility] Work Phone: Start: 05-02-2014 End: 05-02-2014 Follow Up Appt 1 year Follow Up Appt 1 year [facility] Work Phone: Start: 03-15-2014 End: 04-13-2014 *Hepatic Function Panel *Hepatic Function Panel [facility] Work Phone: Start: 03-15-2014 End: 04-13-2014 Lipid panel [AGGREGATE] *Lipid Profile CC PCP [facility] Work Phone: Start: 09-13-2013 End: 10-03-2013 *Hepatic Function Panel *Hepatic Function Panel [facility] Work Phone: Start: 09-13-2013 End: 10-03-2013 Lipid panel [AGGREGATE] *Lipid Profile CC PCP [facility] Work Phone: Start: 04-27-2013 End: 04-12-2014 Ecg routine ecg w/least 12 lds w/i&r EKG (In office) [facility] Work Phone: Start: 04-21-2013 End: 04-21-2013 Complete sleep workup (PSG,CPAP as indicated) & Follow up Complete sleep workup (PSG,CPAP as indicated) & Follow up [facility] Work Phone: Start: 04-21-2013 End: 04-21-2013 Ecg routine ecg w/least 12 lds w/i&r EKG (In office) [facility] Work Phone: Start: 04-21-2013 End: 04-29-2013 INR Coag RelTime (PPP) *PT/INR - Standing Order [facility] Work Phone: Start: 04-19-2013 End: 04-19-2013 DJN DJN [facility] Work Phone: Start: 04-19-2013 End: 04-19-2013 Follow Up Appt 1 year Follow Up Appt 1 year [facility] Work Phone: Start: 04-19-2013 End: 04-19-2013 Stress Echocardiogram (treadmill) Stress Echocardiogram (treadmill) [facility] Work Phone: Start: 03-15-2013 End: 04-14-2013 *Hepatic Function Panel *Hepatic Function Panel [facility] [employer] [facility] Work Phone: Start: 03-15-2013 End: 04-14-2013 Lipid panel [AGGREGATE] *Lipid Profile [facility] Work Phone: Start: 10-06-2012 End: 10-08-2012 *Hepatic Function Panel *Hepatic Function Panel [facility] [facility] Work Phone: Start: 10-06-2012 End: 10-08-2012 Lipid panel [AGGREGATE] *Lipid Profile [facility] Work Phone: Start: 08-05-2012 End: 08-05-2012 Ecg routine ecg w/least 12 lds w/i&r EKG (In office) [facility] Work Phone: Start: 08-05-2012 End: 08-05-2012 Follow Up Appt 6 months Follow Up Appt 6 months [facility] Work Phone: Start: 02-05-2012 End: 02-05-2012 Follow Up Appt 6 months Follow Up Appt 6 months [facility] Work Phone: Start: 01-22-2012 End: 11-14-2011 *Hepatic Function Panel *Hepatic Function Panel [facility] [employer] [facility] Work Phone: Start: 01-22-2012 End: 11-14-2011 Lipid panel [AGGREGATE] *Lipid Profile [facility] Work Phone: Start: 10-15-2011 End: 11-14-2011 *Hepatic Function Panel *Hepatic Function Panel [facility] Work Phone: Start: 10-15-2011 End: 11-14-2011 Lipid panel [AGGREGATE] *Lipid Profile [facility] Work Phone: Start: 07-31-2011 End: 07-31-2011 Follow Up Appt 6 months Follow Up Appt 6 months [facility] Work Phone: Patient Education [facility] Work Phone: Additional Source [...] BE BASED ON THE PRIMARY CLINICAL RECORDS. [employer] [facility]. provides no warranty or guarantee of the accuracy or completeness of information in this document.
[2023-07-14] MEDS: HEPARIN/D5w 25,000 UNITS 25,000 UNITS/250 ML IV.SOLN. 10 UNITS CONT INF (03:53)
[2023-07-14] MEDS: Heparin Injection (Vial) 5,000 UNIT/ML VIAL 4000 UNIT IV (03:53)
[2023-07-14 03:54] LABS: Prothrombin Time (Protime)PT. 13.4 SECONDS (11.7-14.9)
[2023-07-14 03:55] LABS: Partial Thromboplast Time 31.2 Seconds (24.1-36.2)
--- NOTE | 2023-07-14 04:31 | VDLE_ITS ---
Reason For Study: Pulmonary embolism RIGHT LEFT GSV is normal. GSV is normal. CFV is compressible, spontaneous, phasic, CFV is compressible, spontaneous, phasic, competent and demonstrates normal competent, and demonstrates normal augmentation. augmentation. FV is compressible, spontaneous, phasic, FV prox is compressible with normal venous competent and demonstrates normal flow. augmentation. Acute deep vein thrombosis is noted in the POP V is compressible, spontaneous, phasic, left FV mid-distal and PopV. It is competent and demonstrates normal NONCOMPRESSIBLE and dilated. augmentation. T/P Trunk is compressible. T/P Trunk is compressible. PTV is compressible. PTV is compressible. LT PerV is compressible. RT PerV is compressible. Procedure This is a venous duplex using B-mode, color flow and spectral Doppler. Exam performed portable in ICU/CCU. A preliminary report was called and/or faxed to [facility]. VL/Venous Duplex US - Randy Extrem Interpretation Summary Acute deep vein thrombosis is noted in the left femoral vein, popliteal vein. Deep veins of the right lower extremity are patent and compressible segmentally . There is no evidence of right lower extremity deep vein thrombosis. The bilateral great sap henous veins appear patent and compressible segmentally. Ordering Physician: Joselyn Castro Referring Physician: Benjamin Deal MD Performed By: Noy Zuniga RVT
--- NOTE | 2023-07-14 04:34 | ED.VIS.DYS ---
HPI History of Present Illness Chief Complaint: Shortness of Breath Informant: patient Narrative Narrative: Patient is a 77-year-old female with history of coronary artery disease status post stents x 4 presenting with worsening shortness of breath. Patient states she suddenly just got really short of breath today. She notes on Thursday 3 days ago, she had this left rib pain that was pretty severe. It did improve with Tylenol and heating pads. For the last 2 days she has been more tired until she became short of breath today. She does not wear oxygen at home. She denies any swelling of her legs. She has any fever or cough. She denies any sick contacts or URI symptoms. Denies any history of DVT or PE. Does not have any home oxygen does not wear any blood thinners. Denies any associated chest pain or chest pressure. Denies any history of CHF. Called EMS was brought to the ER. Patient was placed on nonrebreather and route for work of breathing and hypoxia. [facility] Medical History 4-beat run of polymorphic nonsustained V-Tach Abnormal findings on diagnostic imaging of heart and coronary circulation Atherosclerosis of coronary artery of [place] heart without angina pectoris Benign essential HTN Bilateral carotid bruits Body mass index (BMI) 45.0-49.9, adult CAD (coronary artery disease) Carotid bruit Chest pain Daytime somnolence Dyspnea Excessive sleepiness Fatigue GERD (gastroesophageal reflux disease) Leg pain, right Long-term use of high-risk medication ALBER (obstructive sleep apnea) Palpitations Pes anserinus tendinitis or bursitis Pure hypercholesterolemia Restless leg syndrome Strain of muscle, fascia and tendon of the posterior muscle group at thigh level, right thigh, initial encounter Home Medications nitroglycerin 0.4 mg sublingual tablet 0.4 mg sublingual UD PRN CHEST PAIN #25 tabs 11/29/18 [Rx Last Taken Unknown] pravastatin 40 mg tablet 40 mg PO QODAY cholesterol #45 tabs 08/13/21 [Rx Last Taken Unknown] metoprolol tartrate 25 mg tablet 12.5 mg (1/2 x 25 mg) PO BID htn #90 tabs 07/29/22 [Rx Last Taken Unknown] olmesartan 20 mg tablet 20 mg PO BID htn #180 tabs 07/29/22 [Rx Last Taken Unknown] aspirin 81 mg tablet,delayed release 81 mg PO DAILY heart 02/19/23 [History Last Taken Unknown] amlodipine 5 mg tablet 10 mg PO DAILY htn 07/14/23 [History Last Taken Unknown] hydrochlorothiazide 12.5 mg capsule 25 mg PO QAM htn 07/14/23 [History Last Taken Unknown] Allergy/AdvReac Type Severity Reaction Status Date / Time Iodinated Contrast Media Allergy Severe HIVES Verified 07/14/23 01:08 [Iodinated Contrast- Oral and IV Dye] isosorbide AdvReac Intermediate SOB, chest Verified 07/14/23 01:08 pressure, cough Family History Father , Age 62 from PE Pulmonary embolism Colon cancer Surgical History History of bilateral cataract extraction History of coronary artery stent placement (12/29/16) History of PTCA Hx of cardiac cath Status post biopsy of thyroid gland Social History Smoking Status: Never smoker alcohol intake: never substance use type: does not use caffeine: Yes Type: carbonated beverages Number of servings: 1 ROS ROS ED Constitutional Constitutional ED: Denies chills or fever(s) Eyes Eyes: Denies change in vision ENT ENT ED: Denies sore throat Cardiovascular Cardiovascular: Denies chest pain or palpitations Respiratory/Chest Respiratory/Chest: Reports dyspnea and dyspnea on exertion; Denies cough or sputum Gastrointestinal Gastrointestinal: Denies abdominal pain, nausea or vomiting Musculoskeletal Musculoskeletal: Reports other Details: left rib pain ; Denies arthralgias or myalgias Integumentary Denies rash Neurologic Neurologic: Denies headache(s) or weakness Psychiatric Psychiatric: Denies anxiety Hematologic/Lymphatic Hematologic/Lymphatic: Denies easy bleeding or easy bruising EXAM Physical Exam Const Vital Signs: 07/13/23 23:22 07/13/23 23:26 07/13/23 23:27 Temperature 96.9 F L 96.9 F L Temperature Source Temporal Temporal Pulse Rate 107 H 104 H Respiratory Rate 28 H 28 H Respiratory Effort Short of Breath Labored Accessory Muscle Use Blood Pressure 151/75 H 151/75 H Blood Pressure Mean 100 100 Pulse Ox 96 92 Oxygen Delivery Method Non-Rebreather Room Air Room Air Oxygen Flow Rate (L/min) 07/13/23 23:50 07/14/23 00:07 07/14/23 00:14 Temperature Temperature Source Pulse Rate Respiratory Rate Respiratory Effort Blood Pressure Blood Pressure Mean Pulse Ox 88 94 Oxygen Delivery Method Nasal Cannula Nasal Cannula Room Air Oxygen Flow Rate (L/min) 2 3 07/14/23 01:00 07/14/23 01:43 07/14/23 02:00 Temperature Temperature Source Pulse Rate 107 H Respiratory Rate 27 H Respiratory Effort Blood Pressure 161/84 H 158/74 H Blood Pressure Mean 109 102 Pulse Ox 91 84 Oxygen Delivery Method Nasal Cannula Nasal Cannula Oxygen Flow Rate (L/min) 3 3 07/14/23 03:00 Temperature Temperature Source Pulse Rate Respiratory Rate Respiratory Effort Blood Pressure 166/80 H Blood Pressure Mean 108 Pulse Ox Oxygen Delivery Method Oxygen Flow Rate (L/min) Positive well nourished and well developed Constitutional Narrative: Mild distress secondary to increased work of breathing General Appearance ED: well developed; Negative for pallor HEENT Reports TM's clear and moist mucous membranes atraumatic Tympanic Membrane ED: Yes TM's clear Eyes PERRL and EOMs intact bilaterally Neck supple and no JVD Chest Wall Chest Narrative: No chest wall tenderness to palpation appreciated. No chest wall rash appreciated. Resp Resp Narrative: Tachypnea, clear breath sounds throughout, mild crackles appreciated at the left base Auscultation: Negative for rales, rhonchi or wheezes Cardio regular rhythm and no murmurs Rate: tachycardic GI non-tender and non-distended Extremity normal to inspection General Extremety ED: Negative for edema General Extremity: Negative for edema Neuro oriented x3 Sensorium / Orientation: alert Motor Exam: general weakness Psych mental status grossly normal Skin no wounds and skin turgor normal General Skin Exam: Negative for pallor MDM MDM MDM Narrative Medical decision making narrative: Patient is evaluated for increased work of breathing that developed today. Patient is hypoxic requiring 3 to 4 L of oxygen and does desat with any type of movement. She is tachycardic. Physical exam is pretty unremarkable however she does have some mild crackles at the left base. She not really have an infectious presentation. Differential includes new onset CHF, ACS, pulmonary emboli, pneumonia and viral syndrome. EKG shows normal sinus rhythm with no acute ischemic changes. 2 view chest x-ray viewed by myself is questionable for left lower lobe pneumonia versus atelectasis. This does correspond to area of pain. CBC is largely normal and she does not have a leukocytosis. In addition she is not febrile which is making infectious etiology less likely. She has a significantly elevated D-dimer and she does have an elevated high-sensitivity troponin of 140. Her BNP is normal and so is her lactate. CTA is obtained however patient is premedicated with Solu-Medrol and Benadryl given a history of hives with contrast media. CT is remarkable for extensive bilateral pulmonary emboli and some signs of mild right ventricular strain. Patient is started on a heparin drip and will be admitted to the hospital. I suspect the right heart strain is contributing to her elevation of her troponin and this is not an ACS picture. The etiology/source of her PEs is not clear however patient will be admitted. She is agreeable. Case is discussed admitting physician, Dr. Castro. History & Record Review Additional record(s) reviewed:: Prior outpatient record (Cardiology visit from 02/19/2023-history of PCI for coronary disease to LAD, hypertension, dyslipidemia.) Lab Data Attestation: I reviewed the patient's lab results. Labs: Laboratory Results - last 24 hr 07/14/23 00:26 WBC 10.9 RBC 4.72 Hgb 13.7 Hct 42.1 MCV 89.2 MCH 29.0 MCHC 32.5 RDW Std Deviation 37.8 RDW Coeff of Alondra 11.7 Plt Count 225 MPV 9.2 Immature Gran % (Auto) 0.300 Neut % (Auto) 76.5 H Lymph % (Auto) 14.9 L [place] % (Auto) 6.4 Eos % (Auto) 1.6 Baso % (Auto) 0.3 Absolute Neuts (auto) 8.4 H Absolute Lymphs (auto) 1.62 Nucleated RBC % 0 PT 13.4 INR 1.0 APTT 31.2 D-Dimer Quant (PE/DVT) 4.89 H* Sodium 141 Potassium 3.4 L Chloride 109 H Carbon Dioxide 27.0 Anion Gap 5 BUN 17 Creatinine 0.98 Estim Creat Clear Calc 62.90 Est GFR (MDRD) Af Amer 71 Est GFR (MDRD) Non-Af 59 L BUN/Creatinine Ratio 17.3 Glucose 150 H Lactic Acid 0.9 Calcium 9.1 Troponin I High Sens 140 H* B-Natriuretic Peptide 66.9 Radiography Chest X-Ray - ED: Read by ED Physician, Read by Radiologist and - (Left atelectasis versus infiltrate) Diagnostic Testing: Clinical Impression(s) from Imaging Studies Chest X-Ray 07/14/23 00:15 IMPRESSION: Left lung base atelectasis versus infiltrate Electronically Signed: Julien Payne MD at 2:10 EST , Chest CTA 07/14/23 01:24 IMPRESSION: Extensive bilateral pulmonary thromboembolic disease, with associated findings of minimal right ventricular strain. No saddle embolus. Infiltrate in the left lower lobe consistent with atelectasis and possible small pulmonary infarction. Minimal left pleural effusion. Nonstandard communication protocol initiated and completed. N.B. : The above Results were Read Back by Kai Miner MD to Mary Cano DO, and understanding confirmed on 07/14/2023 03:16:59 (ET). Electronically Signed: Kai Miner MD at 3:26 EST , ADDENDUM: 07/14/23 0333 IMPRESSION: Extensive bilateral pulmonary thromboembolic disease, with associated findings of minimal right ventricular strain. No saddle embolus. Infiltrate in the left lower lobe consistent with atelectasis and possible small pulmonary infarction. Minimal left pleural effusion. Nonstandard communication protocol initiated and completed. N.B. : The above Results were Read Back by Kai Miner MD to Mary Cano DO, and understanding confirmed on 07/14/2023 03:16:59 (ET). Electronically Signed: Kai Miner MD at 3:26 EST , Rhythm Strip Rhythm Strip: Sinus Tach Rate: 103 Ectopy: None EKG Initial EKG: Attestation: I personally reviewed and interpreted this EKG as follows: Interpretation: Sinus Rhythm Comments: Normal sinus rhythm rate of 100 bpm Normal axis Normal intervals Low voltage QRS No significant change compared to prior EKG Management Discussion w/another healthcare provider: Hospitalist Discharge Plan Dx/Rx/DC Orders Clinical Impression: Acute respiratory failure with hypoxia, Tachycardia, Elevated troponin, Pulmonary embolism, Hypokalemia Disposition Disposition: Acute Care [facility] Discharge Date/Time: 07/14/23 04:07
[2023-07-14 04:51] LABS: Absolute Lymphocyte Count 1.01 X10^3/uL (0.83-4.51); Absolute Neutrophil Count 10.3 X10^3/uL (2.0-7.7); Basophil# 0.03 X10^3/uL; Basophil% 0.3 % (0-1); Eosinophil# 0.03 X10^3/uL; Eosinophils% 0.3 % (0-5); Hematocrit 43.3 % (37-47); Hemoglobin 14.3 g/dL (12.0-15.0); Lymphocyte # 1.01 X10^3/ul (0.83-4.51); Lymphocyte % 8.8 % (19-41); Mean Corpuscular Hgb 29.4 pg (27.0-32.0); Mean Corpuscular Volume 89.1 fL (81-99); Mean Platelet Vol. 9.3 fl (6.2-12.0); Monocyte# 0.15 X10^3/uL; Monocyte% 1.3 % (0-10); NRBC Flagged by Analyzer 0 % (0-5); Neutrophil # 10.28 X10^3/uL (2.7-7.7); Platelet Count 245 K/mm3 (150-450); RBC Distribution Width CV 11.7 % (11.6-14.6); RBC Distribution Width SD 37.9 fl (35.1-43.9); Red Blood Count 4.86 M/mm3 (4.2-5.4); White Blood Count 11.5 K/mm3 (4.4-11.0)
[2023-07-14] MEDS: Potassium Chloride Oral Tablet 20 MEQ 40 MEQ PO (04:55)
[2023-07-14] MEDS: 0.9% Saline Lock 10 ML Syringe IV ×2 (04:55→09:49)
[2023-07-14 05:44] LABS: ALB/GLOB Ratio 0.7 RATIO (0.9-2.4); AST(SGOT) 23 U/L (15-37); Alanine Aminotransfer ALT/SGPT 33 U/L (13-56); Alkaline Phosphatase 104 U/L (45-117); Anion Gap 3 (5-15); BUN 15 mg/dL (7-18); BUN/Creat Ratio 14.9 RATIO (10-20); Calcium,Total 9.3 mg/dL (8.5-10.1); Chloride 105 mmol/L (98-107); Creatinine, Serum 1.01 mg/dL (0.55-1.02); EST Glomerular Filtration Rate 57 mL/min (>60); Est Glom Filt Rate - Afr Amer 68 mL/min (>60); Estimated Creatinine Clearance 60.46 ml/min; Globulin 4.4 g/dL (2.2-4.2); Glucose 207 mg/dL (74-106); Magnesium 1.9 mg/dL (1.6-2.6); Potassium 3.6 mmol/L (3.5-5.1); Protein, Total 7.4 g/dL (6.4-8.2); Sodium Level 135 mmol/L (136-145); Troponin-I HS 180 pg/mL (3.0-54.0)
--- NOTE | 2023-07-14 05:55 | ECHOCS_ITS ---
Reason For Study: EMBOLI Procedure This was a 2D Doppler, Color Flow transthoracic echocardiogram. The study was technically limited. The study was technically difficult. Due to body habitus. Contrast injection was performed. Exam performed portable in ICU/CCU. Left Ventricle Normal LV size. The estimated ejection fraction is 65-70 %. Stage 1 diastolic dysfunction. No regional wall motion abnormalities noted. Right Ventricle Normal RV size. Normal systolic function. Atria Normal left atrium. Normal right atrium. Mitral Valve Normal mitral valve. Trivial mitral valve insufficiency. Tricuspid Valve Not well visualized. Trivial tricuspid valve insufficiency. Right ventricular systolic pressure estimated to be 34 mmHg. Aortic Valve The aortic valve is not well visualized in the short axis view. Pulmonic Valve The pulmonic valve is not well visualized. Great Vessels Normal aortic root. Pericardium/Pleural No pericardial effusion. Medication Diluted definity 3.0ml given slow IV push to enhance endocardial definition. MMode/2D Measurements & Calculations LVIDd: 5.2 cm IVSd: 1.0 cm Ao root diam: 2.9 cm LVIDs: 3.6 cm LVPWd: 1.0 cm FS: 32.1 % LAV(MOD-bp): 39.4 ml LVAd ap4: 20.8 cm2 SV(MOD-sp4): 25.1 ml LAV(MOD-bp) Indexed: 17.9 ml/m2 LVLd ap4: 7.1 cm LAV(MOD-sp2): 37.9 ml EDV(MOD-sp4): 50.7 ml LAV(MOD-sp4): 41.9 ml EDV(sp4-el): 51.6 ml LVAs ap4: 14.1 cm2 LVLs ap4: 6.7 cm ESV(MOD-sp4): 25.7 ml ESV(sp4-el): 25.4 ml EF(MOD-sp4): 49.4 % EF(sp4-el): 50.8 % SV(sp4-el): 26.2 ml LA A4 area: 16.7 cm2 LA dimension(2D): 3.7 cm RA A4 area: 14.6 cm2 TAPSE: 2.5 cm Time Measurements MV dec time: 0.27 sec Doppler Measurements & Calculations MV E max eh: 66.1 cm/sec Lat Peak E' Eh: 10.2 cm/sec Med Peak E' Eh: 11.8 cm/sec MV A max eh: 113.5 cm/sec E/E' lat: 6.5 E/E' med: 5.6 MV E/A: 0.58 MV V2 max: 121.7 cm/sec MV P1/2t max eh: 84.9 cm/sec Ao V2 max: 150.9 cm/sec MV max P.9 mmHg MV P1/2t: 67.8 msec Ao max P.1 mmHg MV V2 mean: 66.9 cm/sec MV dec slope: 366.9 cm/sec2 Ao V2 mean: 109.6 cm/sec MV mean P.0 mmHg MVA(P1/2t): 3.2 cm2 Ao mean P.2 mmHg MV V2 VTI: 23.9 cm Ao V2 VTI: 29.3 cm AV (velocity ratio): 1.00 LV V1 max: 132.5 cm/sec PA V2 max: 72.2 cm/sec TR max eh: 276.9 cm/sec LV V1 max P.0 mmHg PA V2 mean: 46.7 cm/sec TR max P.7 mmHg LV V1 mean P.9 mmHg LV V1 mean: 93.6 cm/sec LV V1 VTI: 29.3 cm ECHO/Echo Complete W/ Contrast Interpretation Summary The estimated ejection fraction is 65-70 %. Stage 1 diastolic dysfunction. The study was technically difficult. Contrast injection was performed. Compared to prior study, there is no significant change. Ordering Physician: Joselyn Castro Referring Physician: Benjamin Deal Performed By: Enedina Guaman RDCS, RVT
--- NOTE | 2023-07-14 06:49 | PN.HOSP_ITS ---
Subjective Subjective Feels well. Breathing well. No prior h/o VTE. Objective Data Objective Data Vital Signs: Vital Signs Temp Pulse Resp BP Pulse Ox O2 Del Method O2 Flow Rate 36.5 C L 108 H 22 H 171/80 H 94 Nasal Cannula 4 07/14/23 04:45 07/14/23 04:45 07/14/23 04:45 07/14/23 04:45 07/14/23 04:45 07/14/23 05:00 07/14/23 05:00 Oxygen Flow Rate (L/min) 4 Oxygen Delivery Method Nasal Cannula Weight: 120 kg Body Mass Index (BMI) 44.6 Intake & Output: Intake and Output for Last 24 Hours 07/12/23 07/13/23 07/14/23 23:59 23:59 23:59 Intake Total 200 / 200 Output Total 400 / 400 Balance -200 / -200 Lab / Micro Data 07/14/23 04:39 07/14/23 04:39 Labs: Laboratory Results - last 24 hr 07/14/23 00:26: WBC 10.9, RBC 4.72, Hgb 13.7, Hct 42.1, MCV 89.2, MCH 29.0, MCHC 32.5, RDW Std Deviation 37.8, RDW Coeff of Alondra 11.7, Plt Count 225, MPV 9.2, Immature Gran % (Auto) 0.300, Neut % (Auto) 76.5 H, Lymph % (Auto) 14.9 L, [place] % (Auto) 6.4, Eos % (Auto) 1.6, Baso % (Auto) 0.3, Absolute Neuts (auto) 8.4 H, Absolute Lymphs (auto) 1.62, Nucleated RBC % 0, PT 13.4, INR 1.0, APTT 31.2, D- Dimer Quant (PE/DVT) 4.89 H*, Sodium 141, Potassium 3.4 L, Chloride 109 H, Carbon Dioxide 27.0, Anion Gap 5, BUN 17, Creatinine 0.98, Estim Creat Clear Calc 62.90, Est GFR (MDRD) Af Amer 71, Est GFR (MDRD) Non-Af 59 L, BUN/Creatinine Ratio 17.3, Glucose 150 H, Lactic Acid 0.9, Calcium 9.1, Troponin I High Sens 140 H*, B-Natriuretic Peptide 66.9 07/14/23 04:39: WBC 11.5 H, RBC 4.86, Hgb 14.3, Hct 43.3, MCV 89.1, MCH 29.4, MCHC 33.0, RDW Std Deviation 37.9, RDW Coeff of Alondra 11.7, Plt Count 245, MPV 9.3, Immature Gran % (Auto) 0.300, Neut % (Auto) 89.0 H, Lymph % (Auto) 8.8 L, [place] % (Auto) 1.3, Eos % (Auto) 0.3, Baso % (Auto) 0.3, Absolute Neuts (auto) 10.3 H, Absolute Lymphs (auto) 1.01, Nucleated RBC % 0, Sodium 135 L, Potassium 3.6, Chloride 105, Carbon Dioxide 27.0, Anion Gap 3 L, BUN 15, Creatinine 1.01, Estim Creat Clear Calc 60.46, Est GFR (MDRD) Af Amer 68, Est GFR (MDRD) Non-Af 57 L, BUN/Creatinine Ratio 14.9, Glucose 207 H, Calcium 9.3, Phosphorus 2.0 L, Magnesium 1.9, Total Bilirubin 0.60, AST 23, ALT 33, Alkaline Phosphatase 104, Troponin I High Sens 180 H*, Total Protein 7.4, Albumin 3.0 L, Globulin 4.4 H, Albumin/Globulin Ratio 0.7 L, TSH 1.70 Micro: Microbiology 07/14/23 00:26 Mucosa - Nose SARS-CoV-2, Influenza & RSV (PCR) - Final Radiography Diagnostic Testing: Radiology Impression Chest X-Ray 07/14/23 00:15 IMPRESSION: Left lung base atelectasis versus infiltrate Electronically Signed: Julien Payne MD at 2:10 EST , Chest CTA 07/14/23 01:24 IMPRESSION: Extensive bilateral pulmonary thromboembolic disease, with associated findings of minimal right ventricular strain. No saddle embolus. Infiltrate in the left lower lobe consistent with atelectasis and possible small pulmonary infarction. Minimal left pleural effusion. Nonstandard communication protocol initiated and completed. N.B. : The above Results were Read Back by Kai Miner MD to Mary Cano DO, and understanding confirmed on 07/14/2023 03:16:59 (ET). Electronically Signed: Kai Miner MD at 3:26 EST , ADDENDUM: 07/14/23 0333 IMPRESSION: Extensive bilateral pulmonary thromboembolic disease, with associated findings of minimal right ventricular strain. No saddle embolus. Infiltrate in the left lower lobe consistent with atelectasis and possible small pulmonary infarction. Minimal left pleural effusion. Nonstandard communication protocol initiated and completed. N.B. : The above Results were Read Back by Kai Miner MD to Mary Cano DO, and understanding confirmed on 07/14/2023 03:16:59 (ET). Electronically Signed: Kai Miner MD at 3:26 EST , Rhythm Strip Rhythm Strip: Sinus Tach Rate: 103 Ectopy: None Physical Exam Const alert and no apparent distress HEENT head/scalp atraumatic and moist oral mucous membranes Resp normal respiratory effort, no retractions, no use of accessory muscles and clear to auscultation bilaterally Cardio regular rate, regular rhythm, S1 normal heart sound and S2 normal heart sound GI normal to inspection, nondistended, normoactive bowel sounds, soft to palpation, non-tender and non-distended Assessment & Plan Assessment/Plan (1) Acute respiratory failure with hypoxia: (2) Pulmonary embolism: (3) Elevated troponin: (4) Tachycardia: (5) Hypokalemia: PLAN: Plan Acute hypoxic respiratory failure secondary to acute pulmonary embolism * CTA of the chest shows extensive bilateral pulmonary thromboembolic disease with minimal RV strain and no saddle embolus, probable small pulmonary infarct in the left lower lobe * Heparin drip * Slight elevation in trop, likely due to cardiac strain from PE. * Check echocardiogram * Duplex performed showed blood clots. Final report pending. Elevated troponin * Likely related to cardiac strain with large clot burden Chronic conditions: * CAD-PCI with SUPA to LAD in 2015 and again in 2017-PCI to ostium first diagonal and proximal LAD and 2004-Continue home aspirin * HTN: -Continue HCTZ, metoprolol, olmesartan * HLP: -Continue home pravastatin * Carotid artery stenosis-Recent carotid artery duplex scan done on 03/09/2023 showing less than 50% bilateral carotid artery stenosis-Continue pravastatin/aspirin * ALBER-Continue CPAP with 15 cm of water-Recommend outpatient follow-up * Morbid obesity-BMI is 45.9-Complicates treatment, prognosis, outcomes- Recommend weight loss DVT prophylaxis: Not indicated as patient is already anticoagulated. CODE STATUS -Full code is verified on admission Charges/Coding Visit Charges Inpatient E&M: 08043 Subs Hosp L2
[2023-07-14 07:30] LABS: Troponin-I HS 150 pg/mL (3.0-54.0)
[2023-07-14] MEDS: Metoprolol Tartrate 25 MG Tablet 12.5 MG PO ×2 (07:43→20:32)
[2023-07-14] MEDS: Aspirin E.C. 81 MG Tablet PO (07:43)
[2023-07-14] MEDS: hydroCHLOROthiazide 12.5mg 12.5 MG PO (07:43)
[2023-07-14] MEDS: Losartan Potassium 50 MG Tablet PO ×2 (09:43→20:32)
[2023-07-14 10:19] LABS: Partial Thromboplast Time 70.3 Seconds (24.1-36.2)
[2023-07-14] MEDS: amLODIPine 10 MG Tablet PO (12:58)
--- NOTE | 2023-07-14 13:27 | CASEMGMT ---
RN?CM?PARTS EXPEDITER?CM?to room to meet with patient for initial transition planning/care coordination?assessment.?RN?CM?introduced self and role at [facility].? Pt voices understanding and consents to?assessment?at this time.? Pt resting in bed in no distress at this time.? Pt is A/O at this time and answers all questions appropriately.?? Care providers, pharmacy, and demographics verified/updated at this time. PCP: Dr Deal Specialists: [facility]/Cardiology Preferred Pharmacy: [facility] Insurance: [employer] [facility] Prescription Benefit:?yes. Pt provided w/30-day free trial offer card for Eliquis and instructed on use. Pt voices understanding. Pt made aware to discuss other possible options w/PCP if refills are not affordable. Living Will/HPOA:?Has both LW and HCPOA, who is her . Pt thinks her dtr, Bibiana, is 1st alternative. LNOK: , Betty. Dtr, Sonali. Son, Artie Living Arrangements: Lives w/her in one-story home w/basement where laundry is. One step to enter home. Denies difficulty w/stairs. Independent w/ADL's and IADL's and manages her own medications. Transportation:?Pt states drives self and states no transportation concerns at this time.? also drives. DME: ? Denies using any DME and denies needs.?She does have a PAP that she does not use, stating she tried it for about 6 months and could not tolerate it. No home O2. Discussed home O2 set up process, should she qualify for it and questions answered. Pt states [employer] for DME co. Does not have a pulse ox, RN CM recommended to get one, and she states she can afford to buy one. HHC/SNF: No hx of either. Pt denies needs for HHC and no needs identified. Pt wishes to return home and states has no concerns with going home at time of discharge.? CM?to follow for home oxygen needs and any further discharge planning/needs.? Pt voices no further concerns/needs at this time.? Advised pt to ask for?CM?if any further questions/concerns/needs arise.? Voices understanding. PLAN:??Home. Follow for possible Home o2. Betito JASONN?RN?CM
[2023-07-14 15:52] LABS: Partial Thromboplast Time 52.9 Seconds (24.1-36.2)
[2023-07-14] MEDS: Pravastatin 40 MG Tablet PO (20:33)
[2023-07-15] VITALS (8 sets, daily range): BP systolic 113–147; BP diastolic 69–74; PULSE 69–90; RESP 17–25; TEMP 36.4–36.8; O2SAT 84–97
[2023-07-15] MEDS: 0.9% Saline Lock 10 ML Syringe IV ×2 (02:20→07:46)
[2023-07-15] MEDS: HEPARIN/D5w 25,000 UNITS 25,000 UNITS/250 ML IV.SOLN. 10 UNITS CONT INF (02:24)
[2023-07-15 05:15] LABS: Absolute Lymphocyte Count 2.83 X10^3/uL (0.83-4.51); Absolute Neutrophil Count 8.7 X10^3/uL (2.0-7.7); Basophil# 0.05 X10^3/uL; Basophil% 0.4 % (0-1); Eosinophil# 0.12 X10^3/uL; Hematocrit 40.1 % (37-47); Hemoglobin 12.7 g/dL (12.0-15.0); Lymphocyte # 2.83 X10^3/ul (0.83-4.51); Lymphocyte % 22.9 % (19-41); Mean Corp Hgb Conc 31.7 g/dL (32-36); Mean Corpuscular Volume 91.6 fL (81-99); Mean Platelet Vol. 9.3 fl (6.2-12.0); Monocyte# 0.67 X10^3/uL; Monocyte% 5.4 % (0-10); NRBC Flagged by Analyzer 0 % (0-5); Neutrophil # 8.66 X10^3/uL (2.7-7.7); Neutrophil % 70.1 % (47-70); Platelet Count 253 K/mm3 (150-450); RBC Distribution Width CV 11.6 % (11.6-14.6); RBC Distribution Width SD 39.4 fl (35.1-43.9); Red Blood Count 4.38 M/mm3 (4.2-5.4); White Blood Count 12.4 K/mm3 (4.4-11.0)
[2023-07-15 05:26] LABS: Partial Thromboplast Time 57.3 Seconds (24.1-36.2)
[2023-07-15 05:32] LABS: Anion Gap 2 (5-15); BUN 24 mg/dL (7-18); BUN/Creat Ratio 25.2 RATIO (10-20); Chloride 107 mmol/L (98-107); Creatinine, Serum 0.95 mg/dL (0.55-1.02); EST Glomerular Filtration Rate 60 mL/min (>60); Est Glom Filt Rate - Afr Amer 73 mL/min (>60); Estimated Creatinine Clearance 64.28 ml/min; Glucose 153 mg/dL (74-106); Potassium 3.6 mmol/L (3.5-5.1); Sodium Level 138 mmol/L (136-145)
--- NOTE | 2023-07-15 06:52 | PN.HOSP_ITS ---
Subjective Subjective Breathing well. He required 6 L of oxygen with rest. Objective Data Objective Data Vital Signs: Vital Signs Temp Pulse Resp BP Pulse Ox O2 Del Method O2 Flow Rate 36.5 C L 90 22 H 147/69 H 96 Nasal Cannula 5 07/15/23 02:19 07/15/23 02:19 07/15/23 02:19 07/15/23 02:19 07/15/23 02:19 07/15/23 02:44 07/15/23 02:44 Oxygen Flow Rate (L/min) 5 Oxygen Delivery Method Nasal Cannula Weight: 120 kg Body Mass Index (BMI) 44.6 Intake & Output: Intake and Output for Last 24 Hours 07/13/23 07/14/23 07/15/23 23:59 23:59 23:59 Intake Total 1837.47 / 1837.47 260 / 260 Output Total 1600 / 1600 100 / 100 Balance 237.47 / 237.47 160 / 160 Lab / Micro Data 07/15/23 05:00 07/15/23 05:00 Labs: Laboratory Results - last 24 hr 07/14/23 06:50: Troponin I High Sens 150 H* 07/14/23 09:50: APTT 70.3 H 07/14/23 15:30: APTT 52.9 H 07/14/23 23:00: APTT 55.0 H 07/15/23 05:00: WBC 12.4 H, RBC 4.38, Hgb 12.7, Hct 40.1, MCV 91.6, MCH 29.0, MCHC 31.7 L, RDW Std Deviation 39.4, RDW Coeff of Alondra 11.6, Plt Count 253, MPV 9.3, Immature Gran % (Auto) 0.200, Neut % (Auto) 70.1 H, Lymph % (Auto) 22.9, [place] % (Auto) 5.4, Eos % (Auto) 1.0, Baso % (Auto) 0.4, Absolute Neuts (auto) 8.7 H, Absolute Lymphs (auto) 2.83, Nucleated RBC % 0, APTT 57.3 H, Sodium 138, Potassium 3.6, Chloride 107, Carbon Dioxide 29.0, Anion Gap 2 L, BUN 24 H, Creatinine 0.95, Estim Creat Clear Calc 64.28, Est GFR (MDRD) Af Amer 73, Est GFR (MDRD) Non-Af 60, BUN/Creatinine Ratio 25.2 H, Glucose 153 H, Calcium 9.0 Micro: Microbiology 07/14/23 00:26 Mucosa - Nose SARS-CoV-2, Influenza & RSV (PCR) - Final Radiography Diagnostic Testing: Radiology Impression Venous Doppler Study 07/14/23 04:31 Interpretation Summary Acute deep vein thrombosis is noted in the left femoral vein, popliteal vein. Deep veins of the right lower extremity are patent and compressible segmentally. There is no evidence of right lower extremity deep vein thrombosis. The bilateral great saphenous veins appear patent and compressible segmentally. Ordering Physician: Joselyn Castro Referring Physician: Benjamin Deal MD Performed By: Noy Zuniga, RVT Echocardiogram 07/14/23 05:55 Interpretation Summary The estimated ejection fraction is 65-70 %. Stage 1 diastolic dysfunction. The study was technically difficult. Contrast injection was performed. Compared to prior study, there is no significant change. Ordering Physician: Joselyn Castro Referring Physician: Benjamin Deal Performed By: Enedina Guaman RDCS, RVT Rhythm Strip Rhythm Strip: Sinus Tach Rate: 103 Ectopy: None Physical Exam Const alert and no apparent distress Resp normal respiratory effort and no retractions Resp Narrative: Bibasilar crackles. Cardio regular rate, regular rhythm, S1 normal heart sound and S2 normal heart sound GI normal to inspection, nondistended, normoactive bowel sounds, soft to palpation, non-tender and non-distended Neuro Sensorium / Orientation: awake and alert Assessment & Plan Assessment/Plan (1) Acute respiratory failure with hypoxia: (2) Pulmonary embolism: (3) Elevated troponin: (4) Tachycardia: (5) Hypokalemia: PLAN: Plan Acute hypoxic respiratory failure secondary to acute pulmonary embolism * CTA of the chest shows extensive bilateral pulmonary thromboembolic disease with minimal RV strain and no saddle embolus, probable small pulmonary infarct in the left lower lobe * DC Heparin drip, start apixaban. * Slight elevation in trop, likely due to cardiac strain from PE. * Echo shows EF 65-70%. Stage I diastolic dysfunction. * Duplex performed showed blood clots. Showed acute DVT in the left femoral vein, popliteal vein. Deep veins of the right lower extremity are patent and compressible segmentally. No DVT in the right lower extremity. * Patient is ambulatory in the home and community and requires home oxygen with portability. Patient required 6 L of oxygen with activity. 2 L of oxygen with rest. Elevated troponin * Likely related to cardiac strain with large clot burden Chronic conditions: * CAD-PCI with SUPA to LAD in 2014 and again in 2017-PCI to ostium first diagonal and proximal LAD and 2004-Continue home aspirin * HTN: -Continue HCTZ, metoprolol, olmesartan * HLP: -Continue home pravastatin * Carotid artery stenosis-Recent carotid artery duplex scan done on 03/09/2023 showing less than 50% bilateral carotid artery stenosis-Continue pravastatin/aspirin * ALBER-Continue CPAP with 15 cm of water-Recommend outpatient follow-up * Morbid obesity-BMI is 45.9-Complicates treatment, prognosis, outcomes- Recommend weight loss DVT prophylaxis: Not indicated as patient is already anticoagulated. CODE STATUS -Full code is verified on admission
[2023-07-15] MEDS: amLODIPine 10 MG Tablet PO (07:43)
[2023-07-15] MEDS: Aspirin E.C. 81 MG Tablet PO (07:43)
[2023-07-15] MEDS: hydroCHLOROthiazide 12.5mg 12.5 MG PO (07:43)
[2023-07-15] MEDS: Metoprolol Tartrate 25 MG Tablet 12.5 MG PO (07:44)
[2023-07-15] MEDS: Losartan Potassium 50 MG Tablet PO (09:53)
[2023-07-15] MEDS: APIXABAN 5 MG TABLET 10 MG PO (09:53)
--- NOTE | 2023-07-15 11:35 | DS.PCM_ITS ---
Providers Date of Admission: 07/14/23 Primary Care Physician: Dr. Александр Deal MD Reason For Visit: ACUTE PE AND HYPOXIA Diagnosis Discharge Diagnosis (1) Acute respiratory failure with hypoxia: Status: Acute Code(s): J96.01 - Acute respiratory failure with hypoxia (2) Pulmonary embolism: Status: Acute Code(s): I26.99 - Other pulmonary embolism without acute cor pulmonale (3) Elevated troponin: Status: Acute Code(s): R79.89 - Other specified abnormal findings of blood chemistry (4) Tachycardia: Status: Acute Code(s): R00.0 - Tachycardia, unspecified (5) Hypokalemia: Status: Acute Code(s): E87.6 - Hypokalemia Plan Acute hypoxic respiratory failure secondary to acute pulmonary embolism * CTA of the chest shows extensive bilateral pulmonary thromboembolic disease with minimal RV strain and no saddle embolus, probable small pulmonary infarct in the left lower lobe * DC Heparin drip, start apixaban. * Slight elevation in trop, likely due to cardiac strain from PE. * Echo shows EF 65-70%. Stage I diastolic dysfunction. * Duplex performed showed blood clots. Showed acute DVT in the left femoral vein, popliteal vein. Deep veins of the right lower extremity are patent and compressible segmentally. No DVT in the right lower extremity. * Patient is ambulatory in the home and community and requires home oxygen with portability. Patient required 6 L of oxygen with activity. 2 L of oxygen with rest. Elevated troponin * Likely related to cardiac strain with large clot burden Chronic conditions: * CAD-PCI with SUPA to LAD in 2014 and again in 2017-PCI to ostium first diagonal and proximal LAD and 2004-Continue home aspirin * HTN: -Continue HCTZ, metoprolol, olmesartan * HLP: -Continue home pravastatin * Carotid artery stenosis-Recent carotid artery duplex scan done on 03/09/2023 showing less than 50% bilateral carotid artery stenosis-Continue pravastatin/aspirin * ALBER-Continue CPAP with 15 cm of water-Recommend outpatient follow-up * Morbid obesity-BMI is 45.9-Complicates treatment, prognosis, outcomes- Recommend weight loss DVT prophylaxis: Not indicated as patient is already anticoagulated. CODE STATUS -Full code is verified on admission Medications at Discharge Home Medications nitroglycerin 0.4 mg sublingual tablet 0.4 mg sublingual UD PRN CHEST PAIN #25 tabs 06/17/19 pravastatin 40 mg tablet 40 mg PO QODAY cholesterol #45 tabs 08/13/21 metoprolol tartrate 25 mg tablet 12.5 mg (1/2 x 25 mg) PO BID htn #90 tabs 07/29/22 olmesartan 20 mg tablet 20 mg PO BID htn #180 tabs 07/29/22 aspirin 81 mg tablet,delayed release 81 mg PO DAILY heart 02/19/23 amlodipine 5 mg tablet 10 mg PO DAILY htn 07/14/23 hydrochlorothiazide 12.5 mg capsule 25 mg PO QAM htn 07/14/23 apixaban 5 mg (74 tabs) tablets in a dose pack ([employer] DVT-PE Treat 30D Start) 5 mg PO BID #74 tabs 07/15/23 Hospital Course Operations None Procedures 2-D Echocardiogram Summary of Care Provided Minutes Spent on Discharge: 32 Hospital Course: Patient presents with shortness of breath due to pulmonary emboli. Patient had DVTs in the left lower extremity as well. Patient will be on apixaban at least for 6 months. Patient advised to follow-up with hematology to see if she needs to be on the longer to have a hypercoagulable workup. Patient denies any history of recent trauma, immobility that preceded this. Weight / BMI Weight Weight: 120 kg Body Mass Index (BMI) 44.6 ABG / Lab / Microbiology Data 07/15/23 05:00 07/15/23 05:00 Laboratory: Laboratory Results - last 24 hr 07/14/23 15:30: APTT 52.9 H 07/14/23 23:00: APTT 55.0 H 07/15/23 05:00: WBC 12.4 H, RBC 4.38, Hgb 12.7, Hct 40.1, MCV 91.6, MCH 29.0, MCHC 31.7 L, RDW Std Deviation 39.4, RDW Coeff of Alondra 11.6, Plt Count 253, MPV 9.3, Immature Gran % (Auto) 0.200, Neut % (Auto) 70.1 H, Lymph % (Auto) 22.9, [place] % (Auto) 5.4, Eos % (Auto) 1.0, Baso % (Auto) 0.4, Absolute Neuts (auto) 8.7 H, Absolute Lymphs (auto) 2.83, Nucleated RBC % 0, APTT 57.3 H, Sodium 138, Potassium 3.6, Chloride 107, Carbon Dioxide 29.0, Anion Gap 2 L, BUN 24 H, Creatinine 0.95, Estim Creat Clear Calc 64.28, Est GFR (MDRD) Af Amer 73, Est GFR (MDRD) Non-Af 60, BUN/Creatinine Ratio 25.2 H, Glucose 153 H, Calcium 9.0 Microbiology: Microbiology 07/14/23 00:26 Mucosa - Nose SARS-CoV-2, Influenza & RSV (PCR) - Final Radiography Diagnostic Testing: Radiology Impression Venous Doppler Study 07/14/23 04:31 Interpretation Summary Acute deep vein thrombosis is noted in the left femoral vein, popliteal vein. Deep veins of the right lower extremity are patent and compressible segmentally. There is no evidence of right lower extremity deep vein thrombosis. The bilateral great saphenous veins appear patent and compressible segmentally. Ordering Physician: Joselyn Castro Referring Physician: Benjamin Deal MD Performed By: Noy Zuniga, RVT Echocardiogram 07/14/23 05:55 Interpretation Summary The estimated ejection fraction is 65-70 %. Stage 1 diastolic dysfunction. The study was technically difficult. Contrast injection was performed. Compared to prior study, there is no significant change. Ordering Physician: Joselyn Castro Referring Physician: Benjamin Deal Performed By: Enedina Guaman RDCS, RVT D/C Instructions Discharge Diet: No restrictions Meaningful Use Info Meaningful Use Diagnoses (Choose all that apply): VTE VTE Anticoag overlap given w/in hospital stay or rx'd at dc?: No Pt receive overlap for 5 days?: No Reason overlap not ordered, prescribed, or given for 5 days: Treatment Not Indicated Discharge Plan Admission Admit Date/Time: 07/14/23 03:19 Primary Reason for Your Visit: PE Attending Provider: Dylan Pérez Primary Care Provider: Александр Deal Consulting Providers: Joselyn Castro Instructions Additional Instructions / Restrictions: You have a blood clots in your lungs as well as her legs. Treatment for this is blood thinners. You will need to be on blood thinners, apixaban, for at least 6 months. Is unknown if you have any hypercoagulable state, condition that may cause you to clot further. The treatment is still anticoagulation but if you do have such a condition you need to be on anticoagulation longer. He will need to see referral manager to determine if you do have such condition. Please follow-up with referral manager in the next few months to see about being evaluated for that. Discharge Orders/Prescriptions Prescriptions: New Eliquis DVT-PE Treat 30D Start 5 mg (74 tabs) tablets,dose pack 5 mg PO BID Qty: 74 0RF Rx Instructions: 2 tablets twice a day for 7 days and then 1 tablet twice a day thereafter. Continued nitroglycerin 0.4 mg tablet, sublingual 0.4 mg SUBLINGUAL UD PRN (Reason: CHEST PAIN) Qty: 25 3RF pravastatin 40 mg tablet 40 mg PO QODAY Qty: 45 3RF aspirin 81 mg tablet,delayed release (DR/EC) 81 mg PO DAILY amlodipine 5 mg tablet 10 mg PO DAILY hydrochlorothiazide 12.5 mg capsule 25 mg PO QAM metoprolol tartrate 25 mg tablet 12.5 mg PO BID Qty: 90 3RF olmesartan 20 mg tablet 20 mg PO BID Qty: 180 3RF Referrals / Follow Up: *[facility] [Provider Group] - Within 3 Months Александр Deal MD [Primary Care Provider] - Within 2 Weeks Disposition Disposition (needs filled in before D/C Order can be placed): Home, Self Care Charges/Coding Visit Charges Inpatient E&M: 39471 Disch Hosp >30min
--- NOTE | 2023-07-15 12:23 | NURSING ---
0956 ambulating patient, O2 sats 87% on 5L NC, see further oxygen home qualification documentation
--- NOTE | 2023-07-15 12:27 | CASEMGMT ---
CHRISTIANO BUSTAMANTE NOTE: Pt being discharged. Home O2 testing has been completed. Pt qualifies for O2 @ 2 l/m @ rest and 6 l/m w/exertion. [place] received from Dr Pérez and [place] [facility] [place] Call to Deepak @ [employer] and she will deliver portable O2 tank to pt's room. CHRISTIANO BUSTAMANTE to room. Pt sitting up in chair. @ bedside. Discussed home O2 set up process and questions answered. Pt and made aware [place] [facility] [place] make arrangements for Home o2 delivery. They voice understanding. Questions answered re: pulse ox. will be purchasing one today. Pt has given the 30-day Eliquis free card to her and he is aware to take to the pharmacy today when he picks up new medications. Questions answered and they voice understanding. Pt states she has been up in the room w/out difficulty and using no DME to ambulate. She and deny having further questions/concerns or other discharge planning needs. Betito CHANG RN CM
== END 2023-07-15 16:10 | disposition home or self-care (01) | DRG 175 ==
LOC: ED 07-14 01:36 → ICU 07-14 05:04
PROVIDERS: Admitting Provider Internal Medicine; Emergency Provider Emergency Medicine; PCP Family Medicine
DX: I26.99 Other pulmonary embolism without acute cor pulmonale (principal); J96.01 Acute respiratory failure with hypoxia; Z68.42 Body mass index [BMI] 45.0-49.9, adult; I82.412 Acute embolism and thrombosis of left femoral vein; I82.432 Acute embolism and thrombosis of left popliteal vein; J98.11 Atelectasis; E66.01 Morbid (severe) obesity due to excess calories; I10 Essential (primary) hypertension; I65.23 Occlusion and stenosis of bilateral carotid arteries; E78.5 Hyperlipidemia, unspecified; E87.6 Hypokalemia; G47.33 Obstructive sleep apnea (adult) (pediatric); I25.10 Atherosclerotic heart disease of native coronary artery without angina pectoris; Z95.5 Presence of coronary angioplasty implant and graft; Z79.82 Long term (current) use of aspirin; Z80.0 Family history of malignant neoplasm of digestive organs
CPT/HCPCS: 71046; 71275; 80048; 80053; 83605; 83735; 83880; 84100; 84443; 84484; 85025; 85379; 85610; 85730; 87631; 93005; 93306; 93970; 94668; 99285; Q9957; Q9967; A4216; C8929

== ENCOUNTER → 2023-11-10 | Outpatient (CLI) | payer MEDICARE, SELFPAY ==
[2016-12-29 14:57] VITALS: BMI 44.9
[2023-11-10 13:01] LABS: Anion Gap 9 (5-15); BUN 18 mg/dL (7-18); BUN/Creat Ratio 17.8 RATIO (10-20); Calcium,Total 9.2 mg/dL (8.5-10.1); Chloride 106 mmol/L (98-107); Creatinine, Serum 1.01 mg/dL (0.55-1.02); EST Glomerular Filtration Rate 57 mL/min (>60); Est Glom Filt Rate - Afr Amer 68 mL/min (>60); Glucose 135 mg/dL (74-106); Potassium 3.4 mmol/L (3.5-5.1); Sodium Level 141 mmol/L (136-145)
== END | disposition home or self-care (01) ==
LOC: MTLAB 10:32
PROVIDERS: PCP Family Medicine; Referring Provider Internal Medicine Cardiovascular Disease; Visit Provider Internal Medicine Cardiovascular Disease
DX: I10 Essential (primary) hypertension (principal)
CPT/HCPCS: 36415; 80048

== ENCOUNTER → 2023-11-24 | Outpatient (CLI) | payer MEDICARE, SELFPAY ==
[2016-12-29 14:57] VITALS: BMI 44.9
[2023-11-24 14:04] LABS: Anion Gap 5 (5-15); BUN 14 mg/dL (7-18); BUN/Creat Ratio 14.5 RATIO (10-20); Calcium,Total 9.4 mg/dL (8.5-10.1); Chloride 108 mmol/L (98-107); Creatinine, Serum 0.97 mg/dL (0.55-1.02); EST Glomerular Filtration Rate 59 mL/min (>60); Est Glom Filt Rate - Afr Amer 72 mL/min (>60); Glucose 167 mg/dL (74-106); Potassium 3.9 mmol/L (3.5-5.1); Sodium Level 138 mmol/L (136-145)
== END | disposition home or self-care (01) ==
LOC: MTLAB 10:09
PROVIDERS: PCP Family Medicine; Referring Provider Internal Medicine Cardiovascular Disease; Visit Provider Internal Medicine Cardiovascular Disease
DX: Z51.81 Encounter for therapeutic drug level monitoring (principal); Z79.899 Other long term (current) drug therapy; I10 Essential (primary) hypertension
CPT/HCPCS: 36415; 80048

== ENCOUNTER → 2024-03-16 | Outpatient (CLI) | payer MEDICARE, SELFPAY ==
[2016-12-29 14:57] VITALS: BMI 44.9
[2024-03-16 10:48] LABS: ALB/GLOB Ratio 0.9 RATIO (0.9-2.4); AST(SGOT) 16 U/L (15-37); Alanine Aminotransfer ALT/SGPT 15 U/L (13-56); Albumin, Serum 3.1 g/dL (3.2-5.0); Alkaline Phosphatase 84 U/L (45-117); Anion Gap 6 (5-15); BUN 11 mg/dL (7-18); Calcium,Total 9.3 mg/dL (8.5-10.1); Chloride 108 mmol/L (98-107); Cholesterol 132 mg/dL (200); Creatinine, Serum 0.84 mg/dL (0.55-1.02); EST Glomerular Filtration Rate 69 mL/min (>60); Est Glom Filt Rate - Afr Amer 84 mL/min (>60); Globulin 3.6 g/dL (2.2-4.2); Glucose 118 mg/dL (74-106); High Density Lipoprotein 49 mg/dL; Potassium 4.1 mmol/L (3.5-5.1); Protein, Total 6.7 g/dL (6.4-8.2); Sodium Level 140 mmol/L (136-145); Triglycerides 79 mg/dL; Very Low Density Lipoprotein 16 mg/dL (5-40)
== END | disposition home or self-care (01) ==
PROVIDERS: PCP Family Medicine; Referring Provider Family Medicine; Visit Provider Family Medicine
DX: I10 Essential (primary) hypertension (principal)
CPT/HCPCS: 36415; 80053; 80061

== ENCOUNTER → 2024-05-30 | Outpatient (CLI) | payer MEDICARE, SELFPAY ==
[2016-12-29 14:57] VITALS: BMI 44.9
--- NOTE | 2024-05-30 15:15 | RAD_ITS ---
INDICATION: pain. medial. EXAMINATION/TECHNIQUE: X-RAY - RIGHT XR Knee Complete 4 Views or More 4 VIEWS COMPARISON: No relevant prior comparison study available FINDINGS: SOFT TISSUES: No soft tissue swelling or gas. No radiopaque foreign body. BONES/JOINTS: No acute fracture or subluxation.. Demineralization of the osseous structures. Mild narrowing of the medial and patellofemoral joint compartments. No sclerotic or destructive changes observed. RAD/Knee 4 or More Views IMPRESSION: Degenerative arthrosis. No demonstrated acute osseous changes. Electronically Signed: Luiz Boyer MD at 15:33 EST ,
== END | disposition home or self-care (01) ==
PROVIDERS: PCP Family Medicine; Referring Provider Family Medicine; Visit Provider Family Medicine
DX: M25.561 Pain in right knee (principal)
CPT/HCPCS: 73564

== ENCOUNTER 2024-07-08 09:30 | Outpatient (RCR) | payer MEDICARE, SELFPAY ==
[2016-12-29 14:57] VITALS: BMI 44.9
--- NOTE | 2024-06-21 11:07 | HP.PTEVAL_ITS ---
Patient's Visit Information Visit Information Visit Information: THANIA AMARO is a 78 year old F referred to Physical Therapy by Dr. Benjamin Deal MD with a diagnosis of R knee pain. Date of Evaluation: 06/21/24 Physical Therapist: Tobias Garrett DPT Visit Plan Frequency: 2x /Week Duration: 6 Weeks Plan: 1) US to medial R knee joint line 2) nustep for ROM, heel slides, progressing ROM 3) HS stretching 4) quad, HS, glute strengthening Subjective Subjective: Pt. is here today for her initial evaluation with diagnosis of R knee pain. Pt. reports twisting it while walking and felt like it wanted to give out on her, but now it has been having progressing knee pain for a few months. Pt. reports her symptoms can be very severe to where she is unable to walk on it. She arrives today with reports of having to limp frequently due to pain. She is now only walking short distance secondary to pain. No N/T noted. She did have xrays showing some degenerative changes. Pt. reports no locking, but has felt like it wants to give out on her at times. Increases pain: squatting, walking, stairs, prolonged standing. Decreased pain with off loading, but is very stiff after prolonged sitting. Pt. does have pain at night and has difficulty staying asleep. Pt. is hopeful to reduce symptoms in order to do all ADLs and IADLs with increased tolerance. Pain R knee: Pain Intensity (Out of 10): 4 Pain Intensity Range: 3 and 8 Objective Objective: POSTURE: Pt. has increased wt. shift to L side in stance. Pt. has reports increased pain with attempts to have equal wt. bearing. PALPATION: Pt. has increased pain at medial joint line. No marked bruising, slight swelling but not major. Pt. has some tenderness at medial popliteal space as well. NEURO: Pt. has normal sensation and normal DTR of BLEs. Pt. is able to rise on heels and toes without limitations. She did use wall for stability. ROM: R knee: 0-5-88deg. Pt. reports marked pain limiting further motion at end ranges. Pt. has tight HS as well. MMT: R knee: ext 17.1#, flexion 16.9#; L knee: ext 29.8#, flexion 21.3#. GAIT: Pt. has marked antalgic pattern during R stance phase. Marked R lateral lean during R stance phase. STAIRS: very painful during R stance phase worse with descending. Special Tests R Knee Sue - Meniscus: Positive R Knee Disco Test - Meniscus: Positive R Knee Anterior Drawer - ACL: Negative R Knee Posterior Drawer - PCL: Negative R Knee Valgus - MCL: Negative R Knee Varus - LCL: Negative Balance/Special Test Scores Lower Extremity Functional Score: 18 Goals Goal 1:: LTG: PT. to be I with HEP. Goal Time Frame: 4-6 Weeks Goal 2:: STG: Pt. to have increased ROM to 0-0-120deg without increase in R knee pain. Goal Time Frame: 2-4 Weeks Goal 3:: LTG: Pt. to have 5/5 strength throughout RLE without increase in symptoms. Goal Time Frame: 4-6 Weeks Goal 4:: LTG: Pt. to ambulate with normal gait pattern without increase in R knee pain. Goal Time Frame: 4-6 Weeks Goal 5:: LTG: Pt. to negotiate 1 flight of stairs with reciprocal pattern without increase in R knee pain. Goal Time Frame: 4-6 Weeks Rehabilitation Potential Physical Therapy Diagnosis: Pt. has signs and symptoms consistent with R knee pain. pt. has marked hypomobility, pain, and marked weakness. Pt. would benefit from PT to address the above limitations progressing back to all recreational and household activities without limitations. Rehabilitation Potential: Good Anticipated Interventions Patient/Client Instruction: Educate patient on: Condition, Plan of Care, Risk Factors and Benefits of Fitness Program For the Purpose of:: To foster healthy habits, To improve decision making, To facilitate caregiver knowledge, To improve self management, To prevent re-injury and To improve ability to perform tasks related to life management Therapeutic Exercise to Include: Strength training, Power training, Postural training, Flexibilty training, Gait and locomotor training, Passive ROM and Active ROM For the Purpose of:: To decrease pain, To increase ROM, To improve nutrient delivery to tissue, To increase oxygenation perfusion, To improve muscle per formance and motor function, To improve ability to perform ADL's, To increase tolerance to activity/condition/position, To improve health of tissue, To decrease soft tissue restriction, To increase flexibility/ROM and To improve endurance Cryotherapy (ice pack, ice massage): Yes Thermo therapy (hot pack): Yes Ultrasound (thermal/non thermal): Yes For the Purpose of:: To decrease pain, To decrease swelling/inflammation, To increase ROM, To improve nutrient delivery to tissue and To increase oxygenation perfusion Text: Thank you for the opportunity to evaluate your patient. For Medicare and Medicare HMO plans, please review the plan of care and approve it. It will need to be FAXED BACK to us at [phone] for Medicare purposes. For Medicare only, by signing this I certify the plan of care. Please let me know if there are questions or concerns regarding this plan of care. Physician Signature: Date:
== END 2024-07-08 19:00 | disposition home or self-care (01) ==
LOC: PT 09:30
PROVIDERS: PCP Family Medicine; Referring Provider Family Medicine; Visit Provider Family Medicine
DX: M25.561 Pain in right knee (principal)
CPT/HCPCS: 97035; 97110; 97161

== ENCOUNTER → 2025-01-02 | Outpatient (CLI) | payer MEDICARE, SELFPAY ==
[2016-12-29 14:57] VITALS: BMI 44.9
[2025-01-02 16:10] LABS: Anion Gap 11 (5-15); BUN 16 mg/dL (4-19); BUN/Creat Ratio 18.2 RATIO (10-20); Calcium,Total 9.6 mg/dL (7.6-11.0); Carbon Dioxide 23.5 mmol/L (21.0-32.0); Chloride 105 mmol/L (98-108); Glucose 121 mg/dL (70-99); Potassium 4.2 mmol/L (3.3-5.1)
== END | disposition home or self-care (01) ==
LOC: MTLAB 12:36
PROVIDERS: PCP Family Medicine; Referring Provider Internal Medicine Cardiovascular Disease; Visit Provider Internal Medicine Cardiovascular Disease
DX: I10 Essential (primary) hypertension (principal)
CPT/HCPCS: 36415; 80048